=== PATIENT | male | born 1930 | race Caucasian/White ===

== ENCOUNTER 2016-10-10 10:12 | Inpatient (IN) | payer MEDICARE, OTHER ==
[2016-10-10] MEDS ORDERED: NORMAL SALINE 1000 ML 1,000 ML IV ONE (10:20)
--- NOTE | 2016-10-10 10:41 | ER Document Report ---
ED Dizziness/Weakness - General Chief Complaint: General Weakness Stated Complaint: GENERAL WEAKNESS Notes: The patient is an 86-year-old male, past medical history prostate cancer (now on weekly chemotherapy), COPD, presents with 1 year of decreasing appetite and 40 pounds of weight loss because he does not feel like eating. In addition, he is having mild shortness of breath. EMS arrived and he was 88% on room air and tachypneic. Patient is also having a wet cough. He denies chest pain, leg swelling, nausea, vomiting, abdominal pain, fevers, night sweats, headache, numbness, tingling or rash. TRAVEL OUTSIDE OF THE [place] IN LAST 30 DAYS: No - Related Data Allergies/Adverse Reactions: flu vaccine Allergy (Uncoded 04/20/16 09:08) Past Medical History - General Information source: Patient - Social History Smoking Status: Unknown if Ever Smoked Family History: None - Past Medical History Cardiac Medical History: Reports: Hx Congestive Heart Failure, Hx Heart Attack - many yrs ago, Hx Hypertension - ? since 03/2015 Denies: Hx Coronary Artery Disease Pulmonary Medical History: Reports: Hx Pneumonia Denies: Hx Asthma, Hx Bronchitis, Hx COPD Neurological Medical History: Denies: Hx Cerebrovascular Accident, Hx Seizures Renal/ Medical History: Reports: Hx Renal Insufficiency Malignancy Medical History: Reports Hx Prostate Cancer Musculoskeltal Medical History: Denies Hx Arthritis Psychiatric Medical History: Denies: Hx Depression Past Surgical History: Reports: Hx Orthopedic Surgery - R ARM, Hx Vascular Surgery - 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 - Immunizations Hx Diphtheria, Pertussis, Tetanus Vaccination: Yes Review of Systems - Review of Systems Notes: REVIEW OF SYSTEMS: CONSTITUTIONAL: -fevers, -chills, +weight loss, +decreased appetite EENT: -eye pain, -difficulty swallowing, -nasal congestion CARDIOVASCULAR:-chest pain, -syncope. RESPIRATORY: -cough, +SOB GASTROINTESTINAL: -abdominal pain, -nausea, -vomiting, -diarrhea GENITOURINARY: -dysuria, -hematuria MUSCULOSKELETAL: -back pain, -neck pain SKIN: -rash or skin lesions. HEMATOLOGIC: -easy bruising or bleeding. LYMPHATIC: -swollen, enlarged glands. NEUROLOGICAL: -altered mental status or loss of consciousness, -headache, - neurologic symptoms PSYCHIATRIC: -anxiety, -depression. ALL OTHER SYSTEMS REVIEWED AND NEGATIVE. Physical Exam - Vital signs Vitals: Temp Pulse Resp BP Pulse Ox 98.1 F 84 25 H 129/75 H 98 10/10/16 10:29 10/10/16 10:29 10/10/16 10:29 10/10/16 10:10/10/16 10:29 - Notes Notes: PHYSICAL EXAMINATION: GENERAL: In no acute distress. HEAD: Atraumatic, normocephalic. EYES: Pupils equal round and reactive to light, extraocular movements intact, sclera anicteric, conjunctiva are normal. ENT: nares patent, oropharynx clear without exudates. Moist mucous membranes. NECK: Normal range of motion, supple without lymphadenopathy LUNGS: Breath sounds clear to auscultation bilaterally and equal. No wheezes rales or rhonchi. HEART: Regular rate and rhythm without murmurs ABDOMEN: Soft, nontender, normoactive bowel sounds. No guarding, no rebound. No masses appreciated. EXTREMITIES: Normal range of motion, no pitting or edema. No cyanosis. NEUROLOGICAL: Cranial nerves grossly intact. Normal speech, normal gait. Normal sensory, motor, and reflex exams. PSYCH: Normal mood, normal affect. SKIN: Warm, Dry, normal turgor, no rashes or lesions noted. Course - Re-evaluation Re-evalutation: Patient hypoxic on arrival down to 87% on room air with tachypnea and wet cough. He does not wear oxygen. On 2 L nasal cannula, his oxygenation improves to 98%. No respiratory distress. CTA does not show evidence of PE, but does show evidence of possible pneumonia. Will begin CAP Abx and admit as inpatient for further evaluation and treatment. Creatinine below previous values. 10/10/16 13:07 Spoke to Ana Bentley and she has accepted patient to Inpatient Tele. - Vital Signs Vital signs: Temp Pulse Resp BP Pulse Ox 98.1 F 84 25 H 129/75 H 98 10/10/16 10:29 10/10/16 10:29 10/10/16 10:29 10/10/16 10:29 10/10/16 10:29 - Laboratory Result Diagrams: 10/10/16 10:40 10/10/16 10:40 Laboratory results interpreted by me: 10/10/16 10/10/16 10/10/16 10:40 10:40 10:40 RBC 3.68 L Hgb 11.3 L Hct 35.5 L MCHC 31.9 L RDW 19.4 H Seg Neutrophils % 84.3 H Lymphocytes % 10.0 L BUN 40 H Creatinine 1.49 H Est GFR ( Amer) 54 L Est GFR (Non-Af Amer) 45 L AST 112 H Alkaline Phosphatase 152 H Creatine Kinase 268 H NT-Pro-B Natriuret Pep 4510 H Total Protein 5.8 L Albumin 3.1 L Urine Protein Urine Blood Urine Urobilinogen Ur Leukocyte Esterase 10/10/16 12:09 RBC Hgb Hct MCHC RDW Seg Neutrophils % Lymphocytes % BUN Creatinine Est GFR ( Amer) Est GFR (Non-Af Amer) AST Alkaline Phosphatase Creatine Kinase NT-Pro-B Natriuret Pep Total Protein Albumin Urine Protein 100 H Urine Blood MODERATE H Urine Urobilinogen 2.0 H Ur Leukocyte Esterase SMALL H - Diagnostic Test Radiology reviewed: Image reviewed, Reports reviewed Radiology results interpreted by me: CXR: NAD CTA Lungs: 1. No PE. 2. Lower lobe airspace disease. In the appropriate clinical setting this is consistent with pneumonia. 3. The benign bone metastasis. Discharge - Discharge Clinical Impression: Hypoxia Pneumonia Qualifiers: Pneumonia type: due to unspecified organism Laterality: unspecified laterality Lung location: lower lobe of lung Qualified Code(s): J18.1 - Lobar pneumonia, unspecified organism Condition: Stable Disposition: ADMITTED INPATIENT Admitting Provider: Hospitalist - Ana Bentley Unit Admitted: Telemetry Referrals: WILBERT WETZEL MD [Primary Care Provider] - Follow up as needed
[2016-10-10 10:56] LABS: ABSOLUTE LYMPHOCYTES (AUTO) 0.7 10^3/uL (0.5-4.7); ABSOLUTE MONOCYTES (AUTO) 0.4 10^3/uL (0.1-1.4); ABSOLUTE NEUT (AUTO) 6.2 10^3/uL (1.7-8.2); BASOPHILS % (AUTO) 0.3 % (0-2); EOSINOPHILS % (AUTO) 0.1 % (0-6); HEMATOCRIT 35.5 % (37.9-51.0); HEMOGLOBIN 11.3 g/dL (13.5-17.0); HGB HCT DIFFERENCE -1.6; MEAN CORPUSCULAR HEMOGLOBIN 30.8 pg (27.0-33.4); MEAN CORPUSCULAR HGB CONC 31.9 g/dL (32.0-36.0); MEAN CORPUSCULAR VOLUME 97 fl (80-97); MONOCYTES % (AUTO) 5.3 % (3-13); RED BLOOD COUNT 3.68 10^6/uL (4.35-5.55); RED CELL DISTRIBUTION WIDTH 19.4 % (11.5-14.0); SEGMENTED NEUTROPHILS % (AUTO) 84.3 % (42-78); WHITE BLOOD COUNT 7.3 10^3/uL (4.0-10.5)
[2016-10-10 11:27] LABS: ALANINE AMINOTRANSFERASE 25 U/L (21-72); ALBUMIN 3.1 g/dL (3.5-5.0); ALKALINE PHOSPHATASE 152 U/L (38-126); ANION GAP 7 (5-19); ASPARTATE AMINO TRANSFERASE 112 U/L (17-59); BILIRUBIN,TOTAL 0.9 mg/dL (0.2-1.3); BLOOD UREA NITROGEN 40 mg/dL (7-20); CALCIUM 8.7 mg/dL (8.4-10.2); CARBON DIOXIDE 29 mmol/L (22-30); CHLORIDE 102 mmol/L (98-107); CREATINE KINASE 268 U/L (55-170); CREATININE RESULT 1.49 mg/dL (0.52-1.25); GLUCOSE 87 mg/dL (75-110); LIPASE 299.1 U/L (23-300); POTASSIUM 4.5 mmol/L (3.6-5.0); SODIUM 138.1 mmol/L (137-145); TOTAL PROTEIN 5.8 g/dL (6.3-8.2)
[2016-10-10 11:39] LABS: TROPONIN I 0.014 ng/mL
[2016-10-10 12:32] LABS: AMORPHOUS SEDIMENT,URINE TRACE /HPF; APPEARANCE,URINE TURBID; BILIRUBIN,URINE NEGATIVE (NEGATIVE); GLUCOSE, URINE NEGATIVE (NEGATIVE); KETONES,URINE NEGATIVE (NEGATIVE); LEUKOCYTE ESTERASE,URINE SMALL (NEGATIVE); NITRITE,URINE NEGATIVE (NEGATIVE); PROTEIN,URINE 100 mg/dL (NEGATIVE); TRIPLE PHOSPHATE CRYSTAL,URINE MODERATE /HPF; URINE SPECIFIC GRAVITY 1.014
[2016-10-10] MEDS ORDERED: CEFTRIAXONE INJ 1000 MG VIAL IV ONE (13:00)
[2016-10-10] MEDS ORDERED: AZITHROMYCIN INJ 500 MG VIAL IV ONE (13:00)
[2016-10-10] MEDS ORDERED: ACETAMINOPHEN 325 MG TABLET PO PRN (13:14)
[2016-10-10] MEDS ORDERED: IPRATROPIUM/ALBUTEROL 0.5-2.5 MG/3 ML AMPUL NEB PRN (13:14)
[2016-10-10] MEDS ORDERED: OXYCODONE-ACETAMINOPHEN 5-325 MG TABLET PO PRN (13:20)
[2016-10-10] MEDS ORDERED: NORMAL SALINE 1000 ML 1,000 ML IV PRN (13:24)
[2016-10-10] MEDS: IPRATROPIUM/ALBUTEROL 0.5-2.5 MG/3 ML AMPUL NEB SCH ×2 (14:06→21:13)
[2016-10-10] MEDS: METOPROLOL SUCCINATE 25 MG TAB.SR.24H PO SCH (14:07)
[2016-10-10] MEDS: HEPARIN SOD (PORCINE) 5,000 UNIT/ML 1 ML SYRINGE SUBCUT SCH ×2 (14:08→21:33)
--- NOTE | 2016-10-10 16:17 | PDOC H&P ---
History of Present Illness Admission Date/PCP: 10/10/16 13:16 WILBERT WETZEL MD Patient complains of: Lack of appetite, moist productive cough History of Present Illness: DANNY RODRIGUEZ is a 86 year old male with past medical history of 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 He states he has lost over 40 pounds in the last year because he does not feel like eating. He has increasing shortness of breath and dyspnea over the last several days. He has a moist productive cough. Denies any fever or chills. He denies any nausea, vomiting, or abdominal pain. He denies any chest pain, dizziness or or headaches. He denies any dysuria. He was found to be hypoxemic on room air with an oxygen saturation of 87%. He underwent chest x-ray and CT a chest and abdomen. His found to have a left lower lobe pneumonia. He is now saturating well on 2 L oxygen per minute. He denies again any fever or flulike symptoms. Past Medical History Cardiac Medical History: Reports: Congestive Heart Failure, Myocardial Infarction - many yrs ago, Hypertension - ? since 03/2015 Denies: Coronary Artery Disease Pulmonary Medical History: Reports: Pneumonia Denies: Asthma, Bronchitis, Chronic Obstructive Pulmonary Disease (COPD) EENT Medical History: Reports: None Neurological Medical History: Denies: Seizures Endocrine Medical History: Reports: None Malignancy Medical History: Reports: Bone Cancer, Other - prostate cancer GI Medical History: Reports: None Musculoskeltal Medical History: Denies: Arthritis Skin Medical History: Reports: None Psychiatric Medical History: Reports: None Denies: Depression Traumatic Medical History: Reports: None Hematology: Reports: Anemia Infectious Medical History: Reports: None Past Surgical History Past Surgical History: Reports: Orthopedic Surgery - R ARM, Vascular Surgery - 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 Social History Information Source: Patient Lives with: Family Smoking Status: Never Smoker Frequency of Alcohol Use: Rare Hx Recreational Drug Use: No Hx Prescription Drug Abuse: No - Advance Directive Resuscitation Status: Full Code Surrogate healthcare decision maker:: son is his healthcare surrogate decision maker Family History Family History: None Parental Family History Reviewed: Yes Children Family History Reviewed: Yes Sibling(s) Family History Reviewed.: Yes Medication/Allergy Home Medications: Hydralazine HCl [Apresoline 10 mg Tablet] 10 mg PO Q8 #90 tablet 04/03/15 Ipratropium/Albuterol Sulfate [Combivent Inhaler] 14.7 gm IH Q4H PRN #1 aer.w.adap 04/03/15 Abiraterone Acetate [Zytiga 250 mg Tablet] 1,000 mg PO DAILY 10/10/16 Bicalutamide [Casodex 50 Mg Tablet] 50 mg PO DAILY 10/10/16 Calcium Carbonate/Vitamin D3 [Calcium 500 + Vit D3 400 Tab] 2 each PO Q8 Doxazosin Mesylate [Cardura 2 mg Tablet] 2 mg PO QHS 10/10/16 Finasteride [Proscar 5 mg Tablet] 5 mg PO DAILY 10/10/16 Furosemide [Lasix] 20 mg PO MOWEFR@1000 10/10/16 Metoprolol Succinate [Toprol Xl 25 mg Tab.sr] 25 mg PO Q12 10/10/16 Prednisone [Deltasone 5 mg Tablet] 5 mg PO BID 10/10/16 Sennosides [Senna Laxative] 17.2 mg PO BID 10/10/16 Allergies/Adverse Reactions: flu vaccine Allergy (Uncoded 04/20/16 09:08) Review of Systems Constitutional: PRESENT: chills, fatigue, weakness Eyes: ABSENT: visual disturbances Ears: ABSENT: hearing changes Cardiovascular: ABSENT: chest pain, dyspnea on exertion, edema, orthropnea, palpitations Respiratory: ABSENT: cough, hemoptysis Gastrointestinal: ABSENT: abdominal pain, constipation, diarrhea, hematemesis, hematochezia, nausea, vomiting Genitourinary: ABSENT: dysuria, hematuria Musculoskeletal: ABSENT: joint swelling Integumentary: ABSENT: rash, wounds Neurological: ABSENT: abnormal gait, abnormal speech, confusion, dizziness, focal weakness, syncope Psychiatric: ABSENT: anxiety, depression, homidical ideation, suicidal ideation Endocrine: ABSENT: cold intolerance, heat intolerance, polydipsia, polyuria Hematologic/Lymphatic: ABSENT: easy bleeding, easy bruising Physical Exam Vital Signs: Temp Pulse Resp BP Pulse Ox 98.1 F 84 20 110/62 96 10/10/16 10:29 10/10/16 10:29 10/10/16 15:01 10/10/16 15:00 10/10/16 15:01 General appearance: PRESENT: no acute distress, thin, well-developed, other - cachetic Head exam: PRESENT: atraumatic, normocephalic Eye exam: PRESENT: conjunctiva pink, EOMI, PERRLA. ABSENT: scleral icterus Ear exam: PRESENT: normal external ear exam Mouth exam: PRESENT: moist, tongue midline Neck exam: PRESENT: carotid bruit Respiratory exam: PRESENT: decreased breath sounds, rhonchi. ABSENT: rales, wheezes Cardiovascular exam: PRESENT: RRR. ABSENT: diastolic murmur, rubs, systolic murmur Pulses: PRESENT: normal dorsalis pedis pul Vascular exam: PRESENT: normal capillary refill GI/Abdominal exam: PRESENT: normal bowel sounds, soft. ABSENT: distended, guarding, mass, organolmegaly, rebound, tenderness Rectal exam: PRESENT: deferred Extremities exam: PRESENT: full ROM. ABSENT: calf tenderness, clubbing, pedal edema Neurological exam: PRESENT: alert, oriented to person, oriented to place, oriented to time, CN II-XII grossly intact Psychiatric exam: PRESENT: appropriate affect, normal mood. ABSENT: homicidal ideation, suicidal ideation Skin exam: PRESENT: dry, intact, warm. ABSENT: cyanosis, rash Results Impressions: Chest X-Ray 10/10/16 10:50 IMPRESSION: NO ACUTE RADIOGRAPHIC FINDING IN THE CHEST. Chest/Abdomen CTA 10/10/16 10:50 IMPRESSION: 1. No PE. 2. Lower lobe airspace disease. In the appropriate clinical setting this is consistent with pneumonia. 3. The benign bone metastasis. Assessment & Plan - Diagnosis (1) Pneumonia Qualifiers: Pneumonia type: due to unspecified organism Laterality: left Lung location: lower lobe of lung Qualified Code(s): J18.1 - Lobar pneumonia, unspecified organism Is this a current diagnosis for this admission?: YesPlan: Her blood cultures 2 were obtained he was started on IV broad-spectrum antibiotics. (2) Hypoxia Is this a current diagnosis for this admission?: YesPlan: Oxygen by nasal cannula titrated to keep oxygen saturation greater than 90. (3) Chronic diastolic heart failure Is this a current diagnosis for this admission?: YesPlan: Patient appears slightly dehydrated the present time. (4) Acute renal failure superimposed on stage 3 chronic kidney disease Is this a current diagnosis for this admission?: YesPlan: We'll gently rehydrate with IV fluids and monitor (5) Hypothyroid Qualifiers: Hypothyroidism type: acquired Qualified Code(s): E03.9 - Hypothyroidism, unspecified Is this a current diagnosis for this admission?: YesPlan: Continue Synthroid (6) Prostate cancer Is this a current diagnosis for this admission?: YesPlan: Stage IV disease presently on oral medication only (7) Goals of care, counseling/discussion Is this a current diagnosis for this admission?: YesPlan: Patient with metastatic prostate cancer, 40 pound weight loss over the last year , COPD, chronic CHF, anemia and chronic kidney disease. He presently states he would like to be resuscitated if his heart were to stop. He is not sure if he wants to be ventilated. He will discuss this with his son. - Time Time Spent: 50 to 70 Minutes Critical Time spent with patient: 25-34 minutes Medications reviewed and adjusted accordingly: Yes Anticipated discharge: Home with Homehealth
[2016-10-10] MEDS: LANSOPRAZOLE 30 MG TAB.RAP.DR PO SCH (18:32)
[2016-10-10] MEDS: FERROUS SULFATE 325 MG TABLET PO SCH (18:36)
[2016-10-10] MEDS: GUAIFENESIN SYRP 200 MG/10 ML UDC PO PRN (18:36)
--- NOTE | 2016-10-10 19:48 | EKG REPORT ---
SEVERITY:- ABNORMAL ECG - SINUS RHYTHM FIRST DEGREE AV BLOCK LEFT BUNDLE BRANCH BLOCK INFERIOR Q WAVES, POSSIBLY DUE TO LBBB : Confirmed by: David Bell MD 10-Oct-2016 19:47:48
--- NOTE | 2016-10-10 19:48 | EKG REPORT ---
SEVERITY:- ABNORMAL ECG - SINUS RHYTHM LEFT BUNDLE BRANCH BLOCK INFERIOR Q WAVES, POSSIBLY DUE TO LBBB : Confirmed by: David Bell MD 10-Oct-2016 19:48:00
[2016-10-11] MEDS: METOPROLOL SUCCINATE 25 MG TAB.SR.24H PO SCH ×2 (00:55→13:11)
[2016-10-11] MEDS: GUAIFENESIN SYRP 200 MG/10 ML UDC PO PRN ×3 (00:55→21:12)
[2016-10-11] MEDS: LANSOPRAZOLE 30 MG TAB.RAP.DR PO SCH ×2 (05:34→17:10)
[2016-10-11] MEDS: HEPARIN SOD (PORCINE) 5,000 UNIT/ML 1 ML SYRINGE SUBCUT SCH ×3 (05:35→21:12)
[2016-10-11 06:40] LABS: ABSOLUTE BASOPHILS # (AUTO) 0.1 10^3/uL (0.0-0.2); ABSOLUTE LYMPHOCYTES (AUTO) 1.1 10^3/uL (0.5-4.7); ABSOLUTE MONOCYTES (AUTO) 0.5 10^3/uL (0.1-1.4); ABSOLUTE NEUT (AUTO) 5.8 10^3/uL (1.7-8.2); BASOPHILS % (AUTO) 0.7 % (0-2); EOSINOPHILS % (AUTO) 0.7 % (0-6); HEMATOCRIT 31.3 % (37.9-51.0); HEMOGLOBIN 10.1 g/dL (13.5-17.0); LYMPHOCYTES % (AUTO) 14.3 % (13-45); MEAN CORPUSCULAR HEMOGLOBIN 31.4 pg (27.0-33.4); MEAN CORPUSCULAR HGB CONC 32.4 g/dL (32.0-36.0); MEAN CORPUSCULAR VOLUME 97 fl (80-97); MONOCYTES % (AUTO) 6.2 % (3-13); RED BLOOD COUNT 3.23 10^6/uL (4.35-5.55); RED CELL DISTRIBUTION WIDTH 19.7 % (11.5-14.0); SEGMENTED NEUTROPHILS % (AUTO) 78.1 % (42-78); WHITE BLOOD COUNT 7.4 10^3/uL (4.0-10.5)
[2016-10-11 06:46] LABS: ANION GAP 6 (5-19); BLOOD UREA NITROGEN 33 mg/dL (7-20); CARBON DIOXIDE 25 mmol/L (22-30); CHLORIDE 107 mmol/L (98-107); CREATININE RESULT 1.26 mg/dL (0.52-1.25); GLUCOSE 70 mg/dL (75-110); POTASSIUM 3.9 mmol/L (3.6-5.0); SODIUM 137.9 mmol/L (137-145)
[2016-10-11 06:58] LABS: CALCIUM 7.2 mg/dL (8.4-10.2)
[2016-10-11] MEDS: IPRATROPIUM/ALBUTEROL 0.5-2.5 MG/3 ML AMPUL NEB SCH ×3 (08:31→19:41)
[2016-10-11] MEDS ORDERED: ENZALUTAMIDE 40 MG PO SCH (10:00)
[2016-10-11] MEDS: FERROUS SULFATE 325 MG TABLET PO SCH ×2 (10:33→17:10)
[2016-10-11] MEDS: BICALUTAMIDE 50 MG TABLET PO SCH (10:34)
[2016-10-11] MEDS: CEFTRIAXONE 1 GM/D5W RTU 50 ML IV SCH (10:35)
[2016-10-11] MEDS: LEVOTHYROXINE SODIUM 0.075 MG TABLET PO SCH (10:35)
[2016-10-11] MEDS: PREDNISONE 5 MG TABLET PO SCH (10:35)
[2016-10-11] MEDS: DOXAZOSIN MESYLATE 2 MG TABLET PO SCH (10:35)
[2016-10-11] MEDS: FINASTERIDE 5 MG TABLET PO SCH (10:35)
[2016-10-11] MEDS: AZITHROMYCIN 500 MG in DEXTROSE 5%-WATER 250 ML IV SCH (11:34)
--- NOTE | 2016-10-11 12:18 | PDOC PROGRESS REPORT ---
Subjective Progress Note for:: 10/11/16 Subjective:: Patient seen on morning rounds. He is resting quietly in bed. He continues to complain of having no appetite. This has been ongoing for over a year and he has lost over 40 lbs. It was his main complaint that brought him into the hospital. He continues to have a congested cough. He denies any dyspnea or shortness of breath. He denies any nausea, vomiting or abdominal pain. He denies any arthralgias at the present time. He has no family members present in the room. Physical Exam Vital Signs: Temp Pulse Resp BP Pulse Ox 98.1 F 76 18 129/61 H 91 L 10/11/16 07:52 10/11/16 08:31 10/11/16 08:31 10/11/16 07:52 10/11/16 08:31 Intake & Output 10/10/16 10/11/16 10/12/16 06:59 06:59 06:59 Intake Total 1250 Output Total 550 Balance 700 Weight 41 kg General appearance: PRESENT: no acute distress, thin, well-developed Head exam: PRESENT: atraumatic, normocephalic Eye exam: PRESENT: conjunctiva pink, EOMI, PERRLA. ABSENT: scleral icterus Ear exam: PRESENT: normal external ear exam Mouth exam: PRESENT: moist, tongue midline Neck exam: ABSENT: carotid bruit, JVD, lymphadenopathy, thyromegaly Respiratory exam: PRESENT: rhonchi - left base, symmetrical, unlabored Cardiovascular exam: PRESENT: RRR. ABSENT: diastolic murmur, rubs, systolic murmur Pulses: PRESENT: normal dorsalis pedis pul Vascular exam: PRESENT: normal capillary refill Rectal exam: PRESENT: deferred Extremities exam: PRESENT: full ROM. ABSENT: calf tenderness, clubbing, pedal edema Neurological exam: PRESENT: alert, awake, oriented to person, oriented to place , oriented to time, oriented to situation, CN II-XII grossly intact. ABSENT: motor sensory deficit Psychiatric exam: PRESENT: appropriate affect, normal mood. ABSENT: homicidal ideation, suicidal ideation Skin exam: PRESENT: dry, intact, warm. ABSENT: cyanosis, rash Results Laboratory Results: 10/11/16 05:30 10/11/16 05:30 10/11/16 10/11/16 05:30 05:30 WBC 7.4 RBC 3.23 L Hgb 10.1 L Hct 31.3 L MCV 97 MCH 31.4 MCHC 32.4 RDW 19.7 H Plt Count 190 Seg Neutrophils % 78.1 H Lymphocytes % 14.3 Monocytes % 6.2 Eosinophils % 0.7 Basophils % 0.7 Absolute Neutrophils 5.8 Absolute Lymphocytes 1.1 Absolute Monocytes 0.5 Absolute Eosinophils 0.0 Absolute Basophils 0.1 Sodium 137.9 Potassium 3.9 Chloride 107 Carbon Dioxide 25 Anion Gap 6 BUN 33 H Creatinine 1.26 H Est GFR ( Amer) > 60 Est GFR (Non-Af Amer) 55 L Glucose 70 L Calcium 7.2 L 10/11/16 05:30 NT-Pro-B Natriuret Pep 3680 H Impressions: Chest X-Ray 10/10/16 10:50 IMPRESSION: NO ACUTE RADIOGRAPHIC FINDING IN THE CHEST. Chest/Abdomen CTA 10/10/16 10:50 IMPRESSION: 1. No PE. 2. Lower lobe airspace disease. In the appropriate clinical setting this is consistent with pneumonia. 3. The benign bone metastasis. Assessment & Plan - Diagnosis (1) Pneumonia Qualifiers: Pneumonia type: due to unspecified organism Laterality: left Lung location: lower lobe of lung Qualified Code(s): J18.1 - Lobar pneumonia, unspecified organism Is this a current diagnosis for this admission?: YesPlan: Her blood cultures 2 were obtained he was started on IV broad-spectrum antibiotics. (2) Hypoxia Is this a current diagnosis for this admission?: YesPlan: Oxygen by nasal cannula titrated to keep oxygen saturation greater than 90. Continue nebulizer treatments and IV antibiotics (3) Chronic diastolic heart failure Is this a current diagnosis for this admission?: YesPlan: Patient appears slightly dehydrated the present time. (4) Acute renal failure superimposed on stage 3 chronic kidney disease Is this a current diagnosis for this admission?: YesPlan: We'll gently rehydrate with IV fluids and monitor (5) Hypothyroid Qualifiers: Hypothyroidism type: acquired Qualified Code(s): E03.9 - Hypothyroidism, unspecified Is this a current diagnosis for this admission?: YesPlan: Continue Synthroid (6) Prostate cancer Is this a current diagnosis for this admission?: YesPlan: Stage IV disease presently on oral medication only (7) Goals of care, counseling/discussion Is this a current diagnosis for this admission?: YesPlan: Patient with metastatic prostate cancer, 40 pound weight loss over the last year , COPD, chronic CHF, anemia and chronic kidney disease. He presently states he would like to be resuscitated if his heart were to stop. He is not sure if he wants to be ventilated. He will discuss this with his son. - Time Time Spent with patient: 25-34 minutes Critical Time spent with patient: 15-24 minutes Medications reviewed and adjusted accordingly: Yes Anticipated discharge: Home with Homehealth
[2016-10-12] MEDS: HEPARIN SOD (PORCINE) 5,000 UNIT/ML 1 ML SYRINGE SUBCUT SCH ×3 (06:01→22:58)
[2016-10-12] MEDS: LANSOPRAZOLE 30 MG TAB.RAP.DR PO SCH ×2 (06:01→17:29)
[2016-10-12] MEDS: IPRATROPIUM/ALBUTEROL 0.5-2.5 MG/3 ML AMPUL NEB SCH ×3 (08:17→19:53)
[2016-10-12] MEDS: FINASTERIDE 5 MG TABLET PO SCH (09:27)
[2016-10-12] MEDS: LEVOTHYROXINE SODIUM 0.075 MG TABLET PO SCH (09:27)
[2016-10-12] MEDS: FERROUS SULFATE 325 MG TABLET PO SCH ×2 (09:27→17:29)
[2016-10-12] MEDS: PREDNISONE 5 MG TABLET PO SCH (09:27)
[2016-10-12] MEDS: CEFTRIAXONE 1 GM/D5W RTU 50 ML IV SCH (09:27)
[2016-10-12] MEDS: METOPROLOL SUCCINATE 25 MG TAB.SR.24H PO SCH ×2 (09:27→22:48)
[2016-10-12] MEDS: DOXAZOSIN MESYLATE 2 MG TABLET PO SCH (09:27)
[2016-10-12] MEDS: BICALUTAMIDE 50 MG TABLET PO SCH (09:28)
[2016-10-12 09:55] LABS: ABSOLUTE LYMPHOCYTES (AUTO) 1.1 10^3/uL (0.5-4.7); ABSOLUTE MONOCYTES (AUTO) 0.4 10^3/uL (0.1-1.4); ABSOLUTE NEUT (AUTO) 5.8 10^3/uL (1.7-8.2); BASOPHILS % (AUTO) 0.5 % (0-2); EOSINOPHILS % (AUTO) 0.2 % (0-6); HEMATOCRIT 29.5 % (37.9-51.0); HEMOGLOBIN 9.4 g/dL (13.5-17.0); HGB HCT DIFFERENCE -1.3; MEAN CORPUSCULAR HEMOGLOBIN 30.9 pg (27.0-33.4); MEAN CORPUSCULAR HGB CONC 31.9 g/dL (32.0-36.0); MEAN CORPUSCULAR VOLUME 97 fl (80-97); MONOCYTES % (AUTO) 5.3 % (3-13); RED BLOOD COUNT 3.05 10^6/uL (4.35-5.55); RED CELL DISTRIBUTION WIDTH 19.8 % (11.5-14.0); WHITE BLOOD COUNT 7.4 10^3/uL (4.0-10.5)
[2016-10-12 10:18] LABS: ANION GAP 6 (5-19); BLOOD UREA NITROGEN 23 mg/dL (7-20); CARBON DIOXIDE 23 mmol/L (22-30); CHLORIDE 109 mmol/L (98-107); CREATININE RESULT 1.08 mg/dL (0.52-1.25); GLUCOSE 106 mg/dL (75-110); POTASSIUM 3.8 mmol/L (3.6-5.0); SODIUM 138.1 mmol/L (137-145)
[2016-10-12] MEDS: AZITHROMYCIN 500 MG in DEXTROSE 5%-WATER 250 ML IV SCH (10:23)
[2016-10-12] MEDS ORDERED: CALCIUM GLUCONATE 1000 MG/10 ML INJ IV ONE (11:30)
--- NOTE | 2016-10-12 12:09 | PDOC PROGRESS REPORT ---
Subjective Progress Note for:: 10/12/16 Subjective:: Patient seen on morning rounds. He is resting quietly in bed. He states he is feeling better than he did. He continues to complain of having no appetite. This has been ongoing for over a year and he has lost over 40 lbs. It was his main complaint that brought him into the hospital. He continues to have a congested cough. He denies any dyspnea or shortness of breath. He denies any nausea, vomiting or abdominal pain. He denies any arthralgias at the present time. He has no family members present in the room. Physical Exam Vital Signs: Temp Pulse Resp BP Pulse Ox 97.8 F 77 20 126/54 H 93 10/12/16 08:00 10/12/16 08:17 10/12/16 08:17 10/12/16 08:00 10/12/16 08:17 Intake & Output 10/11/16 10/12/16 10/13/16 06:59 06:59 06:59 Intake Total 1250 2600 Output Total 550 950 Balance 700 1650 Weight 41 kg 41 kg General appearance: PRESENT: no acute distress, thin, well-developed, other - cachetic Head exam: PRESENT: atraumatic, normocephalic Eye exam: PRESENT: conjunctiva pink, EOMI, PERRLA. ABSENT: scleral icterus Ear exam: PRESENT: normal external ear exam Mouth exam: PRESENT: moist, tongue midline Neck exam: ABSENT: carotid bruit, JVD, lymphadenopathy, thyromegaly Respiratory exam: PRESENT: rhonchi, symmetrical, unlabored, wheezes. ABSENT: rales Cardiovascular exam: PRESENT: RRR. ABSENT: diastolic murmur, rubs, systolic murmur Pulses: PRESENT: normal dorsalis pedis pul Vascular exam: PRESENT: normal capillary refill GI/Abdominal exam: PRESENT: normal bowel sounds, soft. ABSENT: distended, guarding, mass, organolmegaly, rebound, tenderness Rectal exam: PRESENT: deferred Extremities exam: PRESENT: full ROM. ABSENT: calf tenderness, clubbing, pedal edema Neurological exam: PRESENT: alert, awake, oriented to person, oriented to place , oriented to time, oriented to situation, CN II-XII grossly intact. ABSENT: motor sensory deficit Psychiatric exam: PRESENT: appropriate affect, normal mood. ABSENT: homicidal ideation, suicidal ideation Skin exam: PRESENT: dry, intact, warm. ABSENT: cyanosis, rash Results Laboratory Results: 10/12/16 09:37 10/12/16 09:37 10/12/16 10/12/16 09:37 09:37 WBC 7.4 RBC 3.05 L Hgb 9.4 L Hct 29.5 L MCV 97 MCH 30.9 MCHC 31.9 L RDW 19.8 H Plt Count 179 Seg Neutrophils % 79.0 H Lymphocytes % 15.0 Monocytes % 5.3 Eosinophils % 0.2 Basophils % 0.5 Absolute Neutrophils 5.8 Absolute Lymphocytes 1.1 Absolute Monocytes 0.4 Absolute Eosinophils 0.0 Absolute Basophils 0.0 Sodium 138.1 Potassium 3.8 Chloride 109 H Carbon Dioxide 23 Anion Gap 6 BUN 23 H Creatinine 1.08 Est GFR ( Amer) > 60 Est GFR (Non-Af Amer) > 60 Glucose 106 Calcium 7.0 L* 10/11/16 05:30 NT-Pro-B Natriuret Pep 3680 H Impressions: Chest X-Ray 10/10/16 10:50 IMPRESSION: NO ACUTE RADIOGRAPHIC FINDING IN THE CHEST. Chest/Abdomen CTA 10/10/16 10:50 IMPRESSION: 1. No PE. 2. Lower lobe airspace disease. In the appropriate clinical setting this is consistent with pneumonia. 3. The benign bone metastasis. Assessment & Plan - Diagnosis (1) Pneumonia Qualifiers: Pneumonia type: due to unspecified organism Laterality: left Lung location: lower lobe of lung Qualified Code(s): J18.1 - Lobar pneumonia, unspecified organism Is this a current diagnosis for this admission?: YesPlan: Her blood cultures 2 were obtained he was started on IV broad-spectrum antibiotics. (2) Hypoxia Is this a current diagnosis for this admission?: YesPlan: Oxygen by nasal cannula titrated to keep oxygen saturation greater than 90. Continue nebulizer treatments and IV antibiotics (3) Chronic diastolic heart failure Is this a current diagnosis for this admission?: Yes (4) Acute renal failure superimposed on stage 3 chronic kidney disease Is this a current diagnosis for this admission?: YesPlan: We'll gently rehydrate with IV fluids and monitor (5) Hypothyroid Qualifiers: Hypothyroidism type: acquired Qualified Code(s): E03.9 - Hypothyroidism, unspecified Is this a current diagnosis for this admission?: YesPlan: Continue Synthroid (6) Prostate cancer Is this a current diagnosis for this admission?: YesPlan: Stage IV disease presently on oral medication only (7) Goals of care, counseling/discussion Is this a current diagnosis for this admission?: YesPlan: Patient with metastatic prostate cancer, 40 pound weight loss over the last year , COPD, chronic CHF, anemia and chronic kidney disease. He presently states he would like to be resuscitated if his heart were to stop. He is not sure if he wants to be ventilated. He will discuss this with his son. - Time Time Spent with patient: 25-34 minutes Critical Time spent with patient: 15-24 minutes Medications reviewed and adjusted accordingly: Yes Anticipated discharge: Home with Homehealth - Inpatient Certification Based on my medical assessment, after consideration of the patient's comorbidities, presenting symptoms, or acuity I expect that the services needed warrant INPATIENT care.: Yes
[2016-10-13] MEDS: HEPARIN SOD (PORCINE) 5,000 UNIT/ML 1 ML SYRINGE SUBCUT SCH ×3 (06:10→23:11)
[2016-10-13] MEDS: LANSOPRAZOLE 30 MG TAB.RAP.DR PO SCH ×2 (06:10→16:15)
[2016-10-13] MEDS: IPRATROPIUM/ALBUTEROL 0.5-2.5 MG/3 ML AMPUL NEB SCH ×3 (08:10→20:27)
[2016-10-13] MEDS ORDERED: BENZONATATE 100 MG CAPSULE PO PRN (09:17)
[2016-10-13] MEDS ORDERED: ALBUTEROL SULFATE 0.042% NEB (1.25 MG/3 ML) AMPUL NEB PRN (09:18)
[2016-10-13 09:35] LABS: HEMATOCRIT 28.1 % (37.9-51.0); HEMOGLOBIN 9.2 g/dL (13.5-17.0); HGB HCT DIFFERENCE -0.5; MEAN CORPUSCULAR HEMOGLOBIN 31.5 pg (27.0-33.4); MEAN CORPUSCULAR HGB CONC 32.8 g/dL (32.0-36.0); MEAN CORPUSCULAR VOLUME 96 fl (80-97); RED BLOOD COUNT 2.93 10^6/uL (4.35-5.55); RED CELL DISTRIBUTION WIDTH 19.6 % (11.5-14.0); WHITE BLOOD COUNT 6.3 10^3/uL (4.0-10.5)
[2016-10-13 09:48] LABS: ALBUMIN 2.3 g/dL (3.5-5.0); ANION GAP 8 (5-19); BLOOD UREA NITROGEN 16 mg/dL (7-20); CALCIUM 7.3 mg/dL (8.4-10.2); CARBON DIOXIDE 22 mmol/L (22-30); CHLORIDE 111 mmol/L (98-107); CREATININE RESULT 1.01 mg/dL (0.52-1.25); GLUCOSE 97 mg/dL (75-110); POTASSIUM 3.7 mmol/L (3.6-5.0); SODIUM 140.6 mmol/L (137-145)
[2016-10-13 09:59] LABS: BAND NEUTROPHILS % (MANUAL) 4 % (3-5); BASOPHILS % (MANUAL) 0 % (0-2); EOSINOPHILS % (MANUAL) 1 % (0-6); LYMPHOCYTES % (MANUAL) 15 % (13-45); TOTAL CELLS COUNTED 100
[2016-10-13] MEDS ORDERED: SENNOSIDES 17.2 MG PO SCH (10:00)
[2016-10-13] MEDS ORDERED: METOPROLOL SUCCINATE 25 MG TAB.SR.24H PO SCH (10:00)
[2016-10-13 10:01] LABS: ANISOCYTOSIS 2+; OVALOCYTES 2+; POIKILOCYTOSIS 2+; POLYCHROMASIA SLIGHT; TEAR DROP CELLS SLIGHT; TOXIC GRANULATION 1+; TOXIC VACUOLATION PRESENT
[2016-10-13] MEDS: FINASTERIDE 5 MG TABLET PO SCH (12:01)
[2016-10-13] MEDS: FERROUS SULFATE 325 MG TABLET PO SCH ×2 (12:01→18:44)
[2016-10-13] MEDS: PREDNISONE 5 MG TABLET PO SCH ×2 (12:02→18:44)
[2016-10-13] MEDS: LEVOTHYROXINE SODIUM 0.075 MG TABLET PO SCH (12:02)
[2016-10-13] MEDS: GUAIFENESIN 600 MG TABLET.SA PO SCH ×2 (12:02→23:11)
[2016-10-13] MEDS: CEFTRIAXONE 1 GM/D5W RTU 50 ML IV SCH (12:03)
[2016-10-13] MEDS: AZITHROMYCIN 250 MG TABLET PO SCH (12:03)
[2016-10-13] MEDS: BICALUTAMIDE 50 MG TABLET PO SCH (12:04)
[2016-10-13] MEDS ORDERED: VITAMIN D3 PO SCH (14:00)
[2016-10-13] MEDS ORDERED: CALCIUM CARBONATE PO SCH (14:00)
[2016-10-13] MEDS ORDERED: [UNRECOGNIZED DRUG - OTHER] PO SCH (14:00)
--- NOTE | 2016-10-13 16:11 | PDOC PROGRESS REPORT ---
Subjective Progress Note for:: 10/13/16 Subjective:: The patient was seen earlier today on rounds. The patient was very areli and short in conversation. The patient denies any nausea, vomiting, diarrhea, shortness of breath, dizziness, chest pain, heart palpitations, fevers, or chills. The patient has remained afebrile. Blood pressures have been in a good range. When prompted the patient voices no other concerns at this time. Review of systems: The rest of the review of systems is negative. Physical Exam Vital Signs: Temp Pulse Resp BP Pulse Ox 98.0 F 86 18 127/65 H 100 10/13/16 12:24 10/13/16 13:57 10/13/16 13:57 10/13/16 12:24 10/13/16 12:24 Intake & Output 10/11/16 10/12/16 10/13/16 23:59 23:59 23:59 Intake Total 2450 3130 1600 Output Total 1050 1250 851 Balance 1400 1880 749 Weight 41 kg 41 kg 59.3 kg General appearance: PRESENT: no acute distress, thin, well-developed Exam: Frail, chronically ill-appearing Head exam: PRESENT: atraumatic, normocephalic Eye exam: PRESENT: conjunctiva pink, EOMI, PERRLA. ABSENT: scleral icterus Ear exam: PRESENT: normal external ear exam Mouth exam: PRESENT: moist, tongue midline Neck exam: ABSENT: carotid bruit, JVD, lymphadenopathy, thyromegaly Respiratory exam: PRESENT: decreased breath sounds, rhonchi, symmetrical, unlabored. ABSENT: rales, tachypnea, wheezes Cardiovascular exam: PRESENT: RRR. ABSENT: diastolic murmur, rubs, systolic murmur Pulses: PRESENT: normal dorsalis pedis pul Vascular exam: PRESENT: normal capillary refill GI/Abdominal exam: PRESENT: normal bowel sounds, soft. ABSENT: distended, guarding, mass, organolmegaly, rebound, tenderness Rectal exam: PRESENT: deferred Extremities exam: PRESENT: full ROM. ABSENT: calf tenderness, clubbing, pedal edema Neurological exam: PRESENT: alert, awake, oriented to person, oriented to place , oriented to time, oriented to situation, CN II-XII grossly intact. ABSENT: motor sensory deficit Psychiatric exam: PRESENT: agitated. ABSENT: homicidal ideation, suicidal ideation Skin exam: PRESENT: dry, intact, mottled, pallor, warm. ABSENT: cyanosis, rash Results Laboratory Results: 10/13/16 09:14 10/13/16 09:14 10/13/16 10/13/16 09:14 09:14 WBC 6.3 RBC 2.93 L Hgb 9.2 L Hct 28.1 L MCV 96 MCH 31.5 MCHC 32.8 RDW 19.6 H Plt Count 164 Seg Neutrophils % Not Reportable Lymphocytes % Not Reportable Monocytes % Not Reportable Eosinophils % Not Reportable Basophils % Not Reportable Absolute Neutrophils Not Reportable Absolute Lymphocytes Not Reportable Absolute Monocytes Not Reportable Absolute Eosinophils Not Reportable Absolute Basophils Not Reportable Sodium 140.6 Potassium 3.7 Chloride 111 H Carbon Dioxide 22 Anion Gap 8 BUN 16 Creatinine 1.01 Est GFR ( Amer) > 60 Est GFR (Non-Af Amer) > 60 Glucose 97 Calcium 7.3 L Albumin 2.3 L 10/11/16 05:30 NT-Pro-B Natriuret Pep 3680 H Impressions: Chest X-Ray 10/10/16 10:50 IMPRESSION: NO ACUTE RADIOGRAPHIC FINDING IN THE CHEST. Chest/Abdomen CTA 10/10/16 10:50 IMPRESSION: 1. No PE. 2. Lower lobe airspace disease. In the appropriate clinical setting this is consistent with pneumonia. 3. The benign bone metastasis. Assessment & Plan - Diagnosis (1) Pneumonia Qualifiers: Pneumonia type: due to unspecified organism Laterality: left Lung location: lower lobe of lung Qualified Code(s): J18.1 - Lobar pneumonia, unspecified organism Is this a current diagnosis for this admission?: YesPlan: Will continue antibiotic coverage. (2) Acute hypoxemic respiratory failure Is this a current diagnosis for this admission?: YesPlan: Oxygen by nasal cannula titrated to keep oxygen saturation greater than 90. Continue nebulizer treatments and IV antibiotics (3) Chronic diastolic heart failure Is this a current diagnosis for this admission?: YesPlan: The patient appears optivolemic (4) Acute CHF Qualifiers: Congestive heart failure type: diastolic Qualified Code(s): I50.31 - Acute diastolic (congestive) heart failure (5) Acute renal failure superimposed on stage 3 chronic kidney disease Is this a current diagnosis for this admission?: YesPlan: Improved with hydration (7) Hypocalcemia Is this a current diagnosis for this admission?: YesPlan: Will add and albumin. This is been repleted earlier. (8) Hypothyroid Qualifiers: Hypothyroidism type: acquired Qualified Code(s): E03.9 - Hypothyroidism, unspecified Is this a current diagnosis for this admission?: Yes (10) Prostate cancer Is this a current diagnosis for this admission?: YesPlan: Stage IV disease presently on oral medication only (11) Urinary retention Is this a current diagnosis for this admission?: Yes - Time Time Spent with patient: 25-34 minutes Medications reviewed and adjusted accordingly: Yes Anticipated discharge: Home with Homehealth Within: within 24 hours, within 48 hours
[2016-10-13] MEDS: CALCIUM CARBONATE 250 MG/VITAMIN D3 125 UNIT TABLET PO SCH ×2 (16:14→23:11)
[2016-10-13] MEDS: SENNOSIDES/DOCUSATE 8.6-50 MG 1 EACH TABLET PO SCH (18:44)
[2016-10-13] MEDS ORDERED: DOXAZOSIN MESYLATE 2 MG TABLET PO SCH (22:00)
[2016-10-13] MEDS: MONTELUKAST SODIUM 10 MG TABLET PO SCH (23:11)
[2016-10-14] MEDS: CALCIUM CARBONATE 250 MG/VITAMIN D3 125 UNIT TABLET PO SCH ×2 (05:58→13:17)
[2016-10-14] MEDS: LANSOPRAZOLE 30 MG TAB.RAP.DR PO SCH ×2 (05:58→18:04)
[2016-10-14] MEDS: HEPARIN SOD (PORCINE) 5,000 UNIT/ML 1 ML SYRINGE SUBCUT SCH ×2 (05:58→13:17)
[2016-10-14] MEDS: IPRATROPIUM/ALBUTEROL 0.5-2.5 MG/3 ML AMPUL NEB SCH ×3 (08:01→20:01)
[2016-10-14] MEDS: METOPROLOL SUCCINATE 25 MG TAB.SR.24H PO SCH (09:04)
[2016-10-14] MEDS: LEVOTHYROXINE SODIUM 0.075 MG TABLET PO SCH (09:05)
[2016-10-14] MEDS: FINASTERIDE 5 MG TABLET PO SCH (09:05)
[2016-10-14] MEDS: CEFTRIAXONE 1 GM/D5W RTU 50 ML IV SCH (09:05)
[2016-10-14] MEDS: SENNOSIDES/DOCUSATE 8.6-50 MG 1 EACH TABLET PO SCH ×2 (09:05→18:05)
[2016-10-14] MEDS: AZITHROMYCIN 250 MG TABLET PO SCH (09:05)
[2016-10-14] MEDS: FERROUS SULFATE 325 MG TABLET PO SCH ×2 (09:05→18:04)
[2016-10-14] MEDS: GUAIFENESIN 600 MG TABLET.SA PO SCH (09:05)
[2016-10-14] MEDS: PREDNISONE 5 MG TABLET PO SCH ×2 (09:05→18:04)
[2016-10-14] MEDS: BICALUTAMIDE 50 MG TABLET PO SCH (09:06)
--- NOTE | 2016-10-14 16:31 | PDOC PROGRESS REPORT ---
Subjective Progress Note for:: 10/14/16 Subjective:: The patient was seen earlier today on rounds. The patient states that he does about the same in comparison to yesterday. Remains dyspneic even while at rest but is able to fully complete sentences today in comparison to yesterday. Patient denies any pain. Patient has been unable to produce any sputum. The patient denies any nausea, vomiting, diarrhea, dizziness, chest pain, heart palpitations, fevers, or chills. The patient has remained afebrile. Blood pressures have been in a good range. When prompted the patient voices no other concerns at this time. Review of systems: The rest of the review of systems is negative. Physical Exam Vital Signs: Temp Pulse Resp BP Pulse Ox 97.7 F 92 20 121/59 L 93 10/14/16 11:32 10/14/16 14:00 10/14/16 13:42 10/14/16 11:32 10/14/16 13:42 Intake & Output 10/12/16 10/13/16 10/14/16 23:59 23:59 23:59 Intake Total 3130 2575 527 Output Total 1250 1251 950 Balance 1880 1324 -423 Weight 41 kg 59.3 kg 58.9 kg General appearance: PRESENT: no acute distress, thin, well-developed Exam: Frail, chronically ill-appearing Head exam: PRESENT: atraumatic, normocephalic Eye exam: PRESENT: conjunctiva pink, EOMI, PERRLA. ABSENT: scleral icterus Ear exam: PRESENT: normal external ear exam Mouth exam: PRESENT: moist, tongue midline Neck exam: ABSENT: carotid bruit, JVD, lymphadenopathy, thyromegaly Respiratory exam: PRESENT: decreased breath sounds, rhonchi, symmetrical, unlabored. ABSENT: rales, tachypnea, wheezes Cardiovascular exam: PRESENT: RRR. ABSENT: diastolic murmur, rubs, systolic murmur Pulses: PRESENT: normal dorsalis pedis pul Vascular exam: PRESENT: normal capillary refill GI/Abdominal exam: PRESENT: normal bowel sounds, soft. ABSENT: distended, guarding, mass, organolmegaly, rebound, tenderness Rectal exam: PRESENT: deferred Extremities exam: PRESENT: full ROM. ABSENT: calf tenderness, clubbing, pedal edema Neurological exam: PRESENT: alert, awake, oriented to person, oriented to place , oriented to time, oriented to situation, CN II-XII grossly intact. ABSENT: motor sensory deficit Psychiatric exam: PRESENT: agitated. ABSENT: homicidal ideation, suicidal ideation Skin exam: PRESENT: dry, intact, mottled, pallor, warm. ABSENT: cyanosis, rash Results Laboratory Results: 10/13/16 09:14 10/13/16 09:14 10/11/16 05:30 NT-Pro-B Natriuret Pep 3680 H Impressions: Chest X-Ray 10/10/16 10:50 IMPRESSION: NO ACUTE RADIOGRAPHIC FINDING IN THE CHEST. Chest/Abdomen CTA 10/10/16 10:50 IMPRESSION: 1. No PE. 2. Lower lobe airspace disease. In the appropriate clinical setting this is consistent with pneumonia. 3. The benign bone metastasis. Assessment & Plan - Diagnosis (1) Pneumonia Qualifiers: Pneumonia type: due to unspecified organism Laterality: left Lung location: lower lobe of lung Qualified Code(s): J18.1 - Lobar pneumonia, unspecified organism Is this a current diagnosis for this admission?: YesPlan: Will continue antibiotic coverage. (2) Acute hypoxemic respiratory failure Is this a current diagnosis for this admission?: YesPlan: Oxygen by nasal cannula titrated to keep oxygen saturation greater than 90. Continue nebulizer treatments and IV antibiotics (3) Chronic diastolic heart failure Is this a current diagnosis for this admission?: YesPlan: The patient appears optivolemic (4) Acute renal failure superimposed on stage 3 chronic kidney disease Is this a current diagnosis for this admission?: YesPlan: Improved with hydration (5) Coronary artery disease Is this a current diagnosis for this admission?: Yes (6) Hypothyroid Qualifiers: Hypothyroidism type: acquired Qualified Code(s): E03.9 - Hypothyroidism, unspecified Is this a current diagnosis for this admission?: Yes (7) Left bundle branch block Is this a current diagnosis for this admission?: Yes (8) Prostate cancer Is this a current diagnosis for this admission?: YesPlan: Stage IV disease presently on oral medication only. Consult palliative care to help with goals. - Time Time Spent with patient: 25-34 minutes Medications reviewed and adjusted accordingly: Yes Anticipated discharge: SNF, Acute Rehab Within: when bed available
--- NOTE | 2016-10-14 23:27 | Palliative Consultation Report ---
Consultation From:: SHYANNE ALMAGUER Consult Reason: Palliative care - HPI HPI: Visit made 3:00- 3:25 pm 10/14/16 Appreciate palliaitve care consult with this frail 86 year old gentleman who was pleasant and well oriented, but very weak. Mr. Serna was admitted with respiratory distress from home and is being treated for pnemonia and CHF. He has a long history of prostate cancer and has been receiving treatmetn for it, however, records state it is metastatic. He is now only taking oral agents to treat the cancer. He states he has felt himself "lose ground" for the past several months and records indicate he has lost 40# this year which he confirms. Mr. Serna lives in his home with his son who is disabled. He states he has to be able to return home to pay bills and take care of the house. However, he realizes that he has only been OOB once to go to and he was very weak then. He has conversational dyspnea and he realizes he is very weak. He denies having any pain or nausea. Mr. Serna was very pleasant and interested in palliative care for "any help he can get". We discussed his weakened condition and discussed that he may need to go to a rehab facility to regain his strength. He says he doesnt want to do that but his expresion seemed that he is aware of his weakness. We did discuss his advance directives. He says if his heart stops he would like to have attempt to restart it because he has so much to do. I explained that if he becomes so ill that his heart stops it is likely that it will not be able to be "restarted" and if it is, the likelihood of returning to his current baseline would be very doubtful. He agreed but said he wants it left full code for now. I did not get the sense that he will be opposed to disussion about this again later. I did not suggest doing a MOST form at this time due to his weakness and realization of his condition being so upsetting to him. Onset: Last week Onset/Duration: Gradual Quality of Pain: No pain Associated Symptoms: Productive cough, Shortness of breath, Weakness Relieved by: Remaining still Past Medical History(Consults) - General Information Source: Patient, [facility] Records Home Medications: Hydralazine HCl [Apresoline 10 mg Tablet] 10 mg PO Q8 #90 tablet 04/03/15 Ipratropium/Albuterol Sulfate [Combivent Inhaler] 14.7 gm IH Q4H PRN #1 aer.w.[email or web address] 04/03/15 Abiraterone Acetate [Zytiga 250 mg Tablet] 1,000 mg PO DAILY 10/10/16 Bicalutamide [Casodex 50 Mg Tablet] 50 mg PO DAILY 10/10/16 Calcium Carbonate/Vitamin D3 [Calcium 500 + Vit D3 400 Tab] 2 each PO Q8 Doxazosin Mesylate [Cardura 2 mg Tablet] 2 mg PO QHS 10/10/16 Finasteride [Proscar 5 mg Tablet] 5 mg PO DAILY 10/10/16 Furosemide [Lasix] 20 mg PO MOWEFR@1000 10/10/16 Metoprolol Succinate [Toprol Xl 25 mg Tab.sr] 25 mg PO Q12 10/10/16 Prednisone [Deltasone 5 mg Tablet] 5 mg PO BID 10/10/16 Sennosides [Senna Laxative] 17.2 mg PO BID 10/10/16 Allergies/Adverse Reactions: flu vaccine Allergy (Uncoded 04/20/16 09:08) - Social History Lives with: Family Family History: None Parental Family History Reviewed: No Children Family History Reviewed: No Sibling(s) Family History Reviewed.: No Smoking Status: Never Smoker Frequency of Alcohol Use: Rare Hx Recreational Drug Use: No Hx Prescription Drug Abuse: No - Past Medical History Cardiac Medical History: Reports: Hx Congestive Heart Failure, Hx Heart Attack - many yrs ago, Hx Hypertension - ? since 03/2015 Denies: Hx Coronary Artery Disease Pulmonary Medical History: Reports: Hx Pneumonia Denies: Hx Asthma, Hx Bronchitis, Hx COPD EENT Medical History: Reports: None Neurological Medical History: Denies: Hx Cerebrovascular Accident, Hx Seizures Endocrine Medical History: Reports: None Renal/ Medical History: Reports: Hx Renal Insufficiency Malignancy Medical History: Reports Hx Bone Cancer, Reports Hx Prostate Cancer, Reports Other - prostate cancer GI Medical History: Reports: None Musculoskeltal Medical History: Denies Hx Arthritis Skin Medical History: Reports None Psychiatric Medical History: Reports: None Denies: Hx Depression Traumatic Medical History: Reports: None Infectious Medical History: Reports: None Hematology: Reports: Anemia - Surgical History Past Surgical History: Reports: Hx Orthopedic Surgery - R ARM, Hx Vascular Surgery - 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 Review of systems All systems: reviewed and no additional remarkable complaints except as stated Constitutional: Weakness, Weight loss, Recent illness Cardiovascular: Dyspnea Respiratory: Cough, Short of breath Hematologic/Lymphatic: Anemia Neurological/Psychological: Anxiety Ojective:Exam Vital Signs: Temp Pulse Resp BP Pulse Ox 98.0 F 86 18 135/72 H 99 10/14/16 16:03 10/14/16 20:00 10/14/16 20:00 10/14/16 16:03 10/14/16 17:21 Intake & Output 10/13/16 10/14/16 10/15/16 06:59 06:59 06:59 Intake Total 3130 1375 327 Output Total 1200 1201 600 Balance 1930 174 -273 Weight 59.3 kg 58.9 kg - General General Appearance: Alert, Anxious Note:: Awake, alert, riented and pleasant. COncerned with his weakness and condition, many stressors and worries. Denies pain or nausea. Noted dyspnea - Respiratory Respiratory Status: Labored Chest Status: Pain with cough Breath sounds: Rhonchi - Cardiovascular Rhythm: Regular Pulses: Normal: Radial - Extremities Lower extremities: Other - weakness difficulty standing - Neurological Cognition: Normal Orientation: Alert, Oriented to person, Oriented to place, Oriented to time Speech: Normal Cranial nerves: Nerves 1-12 grossly intact - Psychological Associated symptoms: Anxious Objective-Diagnostic Laboratory: 10/13/16 09:14 10/13/16 09:14 10/11/16 05:30 NT-Pro-B Natriuret Pep 3680 H Plan and Recommendation Plan and Recommendation: Discussed advance directives with patient and he said he would think about code status, more concerned with responsibilities at home. Aware of his weakness and anxious about condition. Brandon wants to take meds for prostate cancer. We discussed rehab after hospitalization as he seems to be aware he cannot manage on his own with current weakness. He states the CHF is new and he is not used to dealing with it yet. Aware that this is very serious. Patient asked me to return tomorrow to "check on him". He appears very anxious and frightened. He agreed for PC visits in [facility] and at home. Will discuss at time of discharge. Will follow, appreciate opportunity to participate in his care. - Time Spent with Patient Time spent with patient: 15 to 30 Minutes - Total time 25 min with patient, 40 min chart review, documentation
[2016-10-15] MEDS: HEPARIN SOD (PORCINE) 5,000 UNIT/ML 1 ML SYRINGE SUBCUT SCH ×4 (00:21→21:19)
[2016-10-15] MEDS: CALCIUM CARBONATE 250 MG/VITAMIN D3 125 UNIT TABLET PO SCH ×4 (00:21→21:19)
[2016-10-15] MEDS: GUAIFENESIN 600 MG TABLET.SA PO SCH ×3 (00:21→21:19)
[2016-10-15] MEDS: METOPROLOL SUCCINATE 25 MG TAB.SR.24H PO SCH ×3 (00:22→21:19)
[2016-10-15] MEDS: MONTELUKAST SODIUM 10 MG TABLET PO SCH ×2 (00:22→21:19)
[2016-10-15] MEDS: DOXAZOSIN MESYLATE 2 MG TABLET PO SCH ×2 (00:23→21:19)
[2016-10-15] MEDS: LANSOPRAZOLE 30 MG TAB.RAP.DR PO SCH ×2 (06:58→18:35)
[2016-10-15] MEDS: IPRATROPIUM/ALBUTEROL 0.5-2.5 MG/3 ML AMPUL NEB SCH ×3 (07:50→20:10)
[2016-10-15] MEDS: LEVOTHYROXINE SODIUM 0.075 MG TABLET PO SCH (10:10)
[2016-10-15] MEDS: PREDNISONE 5 MG TABLET PO SCH ×2 (10:11→18:35)
[2016-10-15] MEDS: FINASTERIDE 5 MG TABLET PO SCH (10:11)
[2016-10-15] MEDS: FERROUS SULFATE 325 MG TABLET PO SCH ×2 (10:11→18:35)
[2016-10-15] MEDS: AZITHROMYCIN 250 MG TABLET PO SCH (10:11)
[2016-10-15] MEDS: BICALUTAMIDE 50 MG TABLET PO SCH (10:20)
[2016-10-15] MEDS: CEFUROXIME 500 MG TABLET PO SCH ×2 (10:21→18:35)
[2016-10-15] MEDS: SENNOSIDES/DOCUSATE 8.6-50 MG 1 EACH TABLET PO SCH ×2 (10:28→19:04)
--- NOTE | 2016-10-15 12:44 | PDOC PROGRESS REPORT ---
Subjective Progress Note for:: 10/15/16 Subjective:: The patient was seen earlier today on rounds. The patient states that he does about the same in comparison to yesterday. The patient is short and [place] yet again today. Patient has been seen by social work and has agreed to go to rehabilitation. Remains dyspneic even while at rest but is able to fully complete sentences today in comparison to yesterday. Patient denies any pain. Patient has been unable to produce any sputum. The patient denies any nausea, vomiting, diarrhea, dizziness, chest pain, heart palpitations, fevers, or chills. The patient has remained afebrile. Blood pressures have been in a good range. When prompted the patient voices no other concerns at this time. Will discuss the case with the patient's oncologist as rehabilitation 1 chemotherapy to be put on hold. Review of systems: The rest of the review of systems is negative. Physical Exam Vital Signs: Temp Pulse Resp BP Pulse Ox 98.1 F 80 18 137/67 H 97 10/15/16 07:34 10/15/16 07:49 10/15/16 07:49 10/15/16 07:34 10/15/16 07:49 Intake & Output 10/13/16 10/14/16 10/15/16 23:59 23:59 23:59 Intake Total 2575 527 400 Output Total 1251 950 0 Balance 1324 -423 400 Weight 59.3 kg 58.9 kg 58.9 kg General appearance: PRESENT: no acute distress, thin, well-developed Exam: Frail, chronically ill-appearing Head exam: PRESENT: atraumatic, normocephalic Eye exam: PRESENT: conjunctiva pink, EOMI, PERRLA. ABSENT: scleral icterus Ear exam: PRESENT: normal external ear exam Mouth exam: PRESENT: moist, tongue midline Neck exam: ABSENT: carotid bruit, JVD, lymphadenopathy, thyromegaly Respiratory exam: PRESENT: decreased breath sounds, rhonchi, symmetrical, unlabored. ABSENT: rales, tachypnea, wheezes Cardiovascular exam: PRESENT: RRR. ABSENT: diastolic murmur, rubs, systolic murmur Pulses: PRESENT: normal dorsalis pedis pul Vascular exam: PRESENT: normal capillary refill GI/Abdominal exam: PRESENT: normal bowel sounds, soft. ABSENT: distended, guarding, mass, organolmegaly, rebound, tenderness Rectal exam: PRESENT: deferred Extremities exam: PRESENT: full ROM. ABSENT: calf tenderness, clubbing, pedal edema Neurological exam: PRESENT: alert, awake, oriented to person, oriented to place , oriented to time, oriented to situation, CN II-XII grossly intact. ABSENT: motor sensory deficit Psychiatric exam: PRESENT: agitated. ABSENT: homicidal ideation, suicidal ideation Skin exam: PRESENT: dry, intact, mottled, pallor, warm. ABSENT: cyanosis, rash Results Laboratory Results: 10/13/16 09:14 10/13/16 09:14 10/11/16 05:30 NT-Pro-B Natriuret Pep 3680 H Impressions: Chest X-Ray 10/10/16 10:50 IMPRESSION: NO ACUTE RADIOGRAPHIC FINDING IN THE CHEST. Chest/Abdomen CTA 10/10/16 10:50 IMPRESSION: 1. No PE. 2. Lower lobe airspace disease. In the appropriate clinical setting this is consistent with pneumonia. 3. The benign bone metastasis. Assessment & Plan - Diagnosis (1) Pneumonia Qualifiers: Pneumonia type: due to unspecified organism Laterality: left Lung location: lower lobe of lung Qualified Code(s): J18.1 - Lobar pneumonia, unspecified organism Is this a current diagnosis for this admission?: YesPlan: Will transition to by mouth antibiotic coverage. Will continue Mucinex and encourage flutter valve. (2) Acute hypoxemic respiratory failure Is this a current diagnosis for this admission?: YesPlan: Oxygen by nasal cannula titrated to keep oxygen saturation greater than 90. Continue nebulizer treatments and IV antibiotics (3) Chronic diastolic heart failure Is this a current diagnosis for this admission?: YesPlan: The patient appears optivolemic (4) Acute renal failure superimposed on stage 3 chronic kidney disease Is this a current diagnosis for this admission?: YesPlan: Improved with hydration (5) Coronary artery disease Is this a current diagnosis for this admission?: Yes (6) Hypothyroid Qualifiers: Hypothyroidism type: acquired Qualified Code(s): E03.9 - Hypothyroidism, unspecified Is this a current diagnosis for this admission?: Yes (7) Left bundle branch block Is this a current diagnosis for this admission?: Yes (8) Prostate cancer Is this a current diagnosis for this admission?: YesPlan: Stage IV disease presently on oral medication only. Consult palliative care to help with goals. (9) Urinary retention Is this a current diagnosis for this admission?: Yes - Time Time Spent with patient: 25-34 minutes Medications reviewed and adjusted accordingly: Yes Anticipated discharge: SNF Within: when bed available
[2016-10-16] MEDS: CALCIUM CARBONATE 250 MG/VITAMIN D3 125 UNIT TABLET PO SCH ×3 (05:43→21:24)
[2016-10-16] MEDS: LANSOPRAZOLE 30 MG TAB.RAP.DR PO SCH ×2 (05:43→17:20)
[2016-10-16] MEDS: HEPARIN SOD (PORCINE) 5,000 UNIT/ML 1 ML SYRINGE SUBCUT SCH ×3 (05:43→21:24)
[2016-10-16] MEDS: IPRATROPIUM/ALBUTEROL 0.5-2.5 MG/3 ML AMPUL NEB SCH ×3 (08:04→19:21)
[2016-10-16] MEDS: PREDNISONE 5 MG TABLET PO SCH ×2 (09:50→17:20)
[2016-10-16] MEDS: FERROUS SULFATE 325 MG TABLET PO SCH ×2 (09:50→17:20)
[2016-10-16] MEDS: FINASTERIDE 5 MG TABLET PO SCH (09:50)
[2016-10-16] MEDS: CEFUROXIME 500 MG TABLET PO SCH ×2 (09:50→17:20)
[2016-10-16] MEDS: METOPROLOL SUCCINATE 25 MG TAB.SR.24H PO SCH ×2 (09:51→21:24)
[2016-10-16] MEDS: AZITHROMYCIN 250 MG TABLET PO SCH (09:51)
[2016-10-16] MEDS: LEVOTHYROXINE SODIUM 0.075 MG TABLET PO SCH (09:51)
[2016-10-16] MEDS: GUAIFENESIN 600 MG TABLET.SA PO SCH ×2 (09:51→21:24)
[2016-10-16] MEDS: BICALUTAMIDE 50 MG TABLET PO SCH (09:51)
[2016-10-16] MEDS: SENNOSIDES/DOCUSATE 8.6-50 MG 1 EACH TABLET PO SCH ×2 (09:53→17:19)
--- NOTE | 2016-10-16 13:22 | PDOC PROGRESS REPORT ---
Subjective Progress Note for:: 10/16/16 Subjective:: The patient was seen earlier today on rounds. The patient states that he does about the same in comparison to yesterday. The patient is awaiting placement. Discussed the case with the patient's oncologist. Remains dyspneic even while at rest but is able to fully complete sentences today in comparison to yesterday. Patient denies any pain. Patient has been unable to produce any sputum. The patient denies any nausea, vomiting, diarrhea, dizziness, chest pain, heart palpitations, fevers, or chills. The patient has remained afebrile. Blood pressures have been in a good range. When prompted the patient voices no other concerns at this time. Review of systems: The rest of the review of systems is negative. Physical Exam Vital Signs: Temp Pulse Resp BP Pulse Ox 98.1 F 88 18 131/63 H 96 10/16/16 04:05 10/16/16 08:04 10/16/16 08:04 10/16/16 04:05 10/16/16 08:04 Intake & Output 10/14/16 10/15/16 10/16/16 23:59 23:59 23:59 Intake Total 527 870 620 Output Total 950 800 500 Balance -423 70 120 Weight 58.9 kg 58.9 kg 59.2 kg General appearance: PRESENT: no acute distress, thin, well-developed Exam: Frail, chronically ill-appearing Head exam: PRESENT: atraumatic, normocephalic Eye exam: PRESENT: conjunctiva pink, EOMI, PERRLA. ABSENT: scleral icterus Ear exam: PRESENT: normal external ear exam Mouth exam: PRESENT: moist, tongue midline Neck exam: ABSENT: carotid bruit, JVD, lymphadenopathy, thyromegaly Respiratory exam: PRESENT: decreased breath sounds, rhonchi, symmetrical, unlabored. ABSENT: rales, tachypnea, wheezes Cardiovascular exam: PRESENT: RRR. ABSENT: diastolic murmur, rubs, systolic murmur Pulses: PRESENT: normal dorsalis pedis pul Vascular exam: PRESENT: normal capillary refill GI/Abdominal exam: PRESENT: normal bowel sounds, soft. ABSENT: distended, guarding, mass, organolmegaly, rebound, tenderness Rectal exam: PRESENT: deferred Extremities exam: PRESENT: full ROM. ABSENT: calf tenderness, clubbing, pedal edema Neurological exam: PRESENT: alert, awake, oriented to person, oriented to place , oriented to time, oriented to situation, CN II-XII grossly intact. ABSENT: motor sensory deficit Psychiatric exam: PRESENT: agitated. ABSENT: homicidal ideation, suicidal ideation Skin exam: PRESENT: dry, intact, mottled, pallor, warm. ABSENT: cyanosis, rash Results Laboratory Results: 10/13/16 09:14 10/13/16 09:14 10/10/16 13:25 Blood Blood Culture - Final NO GROWTH IN 5 DAYS 10/11/16 05:30 NT-Pro-B Natriuret Pep 3680 H Impressions: Chest X-Ray 10/10/16 10:50 IMPRESSION: NO ACUTE RADIOGRAPHIC FINDING IN THE CHEST. Chest/Abdomen CTA 10/10/16 10:50 IMPRESSION: 1. No PE. 2. Lower lobe airspace disease. In the appropriate clinical setting this is consistent with pneumonia. 3. The benign bone metastasis. Assessment & Plan - Diagnosis (1) Pneumonia Qualifiers: Pneumonia type: due to unspecified organism Laterality: left Lung location: lower lobe of lung Qualified Code(s): J18.1 - Lobar pneumonia, unspecified organism Is this a current diagnosis for this admission?: YesPlan: have transitioned to by mouth antibiotic coverage. Will continue Mucinex and encourage flutter valve. (2) Acute hypoxemic respiratory failure Is this a current diagnosis for this admission?: YesPlan: Oxygen by nasal cannula titrated to keep oxygen saturation greater than 90. Continue nebulizer treatments and IV antibiotics (3) Chronic diastolic heart failure Is this a current diagnosis for this admission?: YesPlan: The patient appears optivolemic (4) Acute renal failure superimposed on stage 3 chronic kidney disease Is this a current diagnosis for this admission?: YesPlan: Improved with hydration (5) Coronary artery disease Is this a current diagnosis for this admission?: Yes (6) Hypothyroid Qualifiers: Hypothyroidism type: acquired Qualified Code(s): E03.9 - Hypothyroidism, unspecified Is this a current diagnosis for this admission?: Yes (7) Left bundle branch block Is this a current diagnosis for this admission?: Yes (8) Prostate cancer Is this a current diagnosis for this admission?: YesPlan: Stage IV disease presently on oral medication only. Consult palliative care to help with goals. (9) Urinary retention Is this a current diagnosis for this admission?: Yes - Time Time Spent with patient: 25-34 minutes Medications reviewed and adjusted accordingly: Yes Anticipated discharge: SNF Within: when bed available
[2016-10-16] MEDS: DOXAZOSIN MESYLATE 2 MG TABLET PO SCH (21:24)
[2016-10-16] MEDS: MONTELUKAST SODIUM 10 MG TABLET PO SCH (21:24)
--- NOTE | 2016-10-16 23:18 | Progress Note ---
Provider Note Provider Note: Palliative Care follow up visit 10/16/16 3:45- 4::05 pm with patient and his son. S: Mr. Serna is looking much better today and says he is feeling better. He reports that he walked in the hallway some today with PT with weakness but not extreme dyspnea. He still denies pain and says he thinks he is breathing better. Main complaint is little or no appetite, which has been going on for several months with weight loss. We discussed recommendations for meds to help improve his appetite and he is interested. He said he just doent think he can eat and the thought/sight of food repels him. Denies constipation or nausea. Son is at bedside and patient made it obvious that he was only going to go to rehab for a short time and plans to go home with son as soon as possible. Son is disabled, but appears to be able to help his father some and certainly able to help with meals, etc. Son is alert and oriented. Mr. Serna is OK with going to rehab and stopping chemo for now. But he has not given up treatment for all of his disease, including cancer. He is sure he will be sronger soon per his words, but his expression showed some anxiety. O: Alert, oriented and in no distress except some noted anxiety. Less pale than two days ago. Breathing easily while in ed with oxygen on. Some congested cough and rhonchi Abd soft and thin. No edema of extremities. Pulse regular. A/P: Resolving pneumonia and respiratory distress, to continue meds and PT while in hospital Weakness: patient agreeable to go to [facility] for rehab since it is close to his home. I explained to him that I cannot follow him at [facility], but will see him in hospital Wednesday. And I will be happy to follow him when he goes home. I gave son my card to call me when he goes home. If he gets home will discuss the chemo then in relation to the condition he is in. Appetite problems: Would recomend Remeron ( Mirtazipine) 7.5 mg q hs if low dose prednisone is not continued for breathing. Both could be used together and if no side effects, remeron could be increased to 15 mg q hs. Will follow with patient if he is still at [facility] on Wednesday. Appreciate opportunity to participate with care. Will address advance directives again with patient.
[2016-10-17] MEDS: CALCIUM CARBONATE 250 MG/VITAMIN D3 125 UNIT TABLET PO SCH ×3 (06:19→21:25)
[2016-10-17] MEDS: LANSOPRAZOLE 30 MG TAB.RAP.DR PO SCH ×2 (06:19→16:31)
[2016-10-17] MEDS: HEPARIN SOD (PORCINE) 5,000 UNIT/ML 1 ML SYRINGE SUBCUT SCH ×3 (06:20→21:26)
[2016-10-17 07:24] LABS: HEMATOCRIT 27.4 % (37.9-51.0); HGB HCT DIFFERENCE -0.4; MEAN CORPUSCULAR HEMOGLOBIN 31.5 pg (27.0-33.4); MEAN CORPUSCULAR HGB CONC 32.9 g/dL (32.0-36.0); MEAN CORPUSCULAR VOLUME 96 fl (80-97); RED BLOOD COUNT 2.86 10^6/uL (4.35-5.55); RED CELL DISTRIBUTION WIDTH 19.6 % (11.5-14.0); WHITE BLOOD COUNT 8.8 10^3/uL (4.0-10.5)
[2016-10-17 07:43] LABS: ANION GAP 7 (5-19); BLOOD UREA NITROGEN 16 mg/dL (7-20); CALCIUM 7.6 mg/dL (8.4-10.2); CARBON DIOXIDE 23 mmol/L (22-30); CHLORIDE 106 mmol/L (98-107); CREATININE RESULT 0.96 mg/dL (0.52-1.25); GLUCOSE 64 mg/dL (75-110); MAGNESIUM 2.4 mg/dL (1.6-2.3); POTASSIUM 4.3 mmol/L (3.6-5.0); SODIUM 135.7 mmol/L (137-145)
[2016-10-17] MEDS: IPRATROPIUM/ALBUTEROL 0.5-2.5 MG/3 ML AMPUL NEB SCH ×3 (08:46→20:02)
[2016-10-17] MEDS: FERROUS SULFATE 325 MG TABLET PO SCH ×2 (11:00→18:04)
[2016-10-17] MEDS: GUAIFENESIN 600 MG TABLET.SA PO SCH ×2 (11:01→21:25)
[2016-10-17] MEDS: FINASTERIDE 5 MG TABLET PO SCH (11:01)
[2016-10-17] MEDS: AZITHROMYCIN 250 MG TABLET PO SCH (11:01)
[2016-10-17] MEDS: CEFUROXIME 500 MG TABLET PO SCH ×2 (11:02→18:04)
[2016-10-17] MEDS: BICALUTAMIDE 50 MG TABLET PO SCH (11:02)
[2016-10-17] MEDS: LEVOTHYROXINE SODIUM 0.075 MG TABLET PO SCH (11:02)
[2016-10-17] MEDS: METOPROLOL SUCCINATE 25 MG TAB.SR.24H PO SCH ×2 (11:02→21:25)
[2016-10-17] MEDS: PREDNISONE 5 MG TABLET PO SCH ×2 (11:02→18:04)
[2016-10-17] MEDS: SENNOSIDES/DOCUSATE 8.6-50 MG 1 EACH TABLET PO SCH (11:04)
--- NOTE | 2016-10-17 13:34 | PDOC PROGRESS REPORT ---
Subjective Progress Note for:: 10/17/16 Subjective:: Patient denies overt diarrhea but does admit to some loose stool. Patient denies chest pain, shortness of breath, abdominal pain, nausea, vomiting , fevers, chills, constipation, headache, new onset weakness. Physical Exam Vital Signs: Temp Pulse Resp BP Pulse Ox 98.2 F 85 19 121/70 98 10/17/16 03:12 10/17/16 03:12 10/17/16 03:12 10/17/16 03:12 10/17/16 03:12 Intake & Output 10/16/16 10/17/16 10/18/16 06:59 06:59 07:59 Intake Total 1090 1010 Output Total 1300 902 Balance -210 108 Weight 59.2 kg 57.4 kg Exam: General: Awake alert and oriented x3, no acute respiratory distress HEENT: AT/NC, PERRL, EOMI, oropharynx is moist, pink, no scleral icterus, no conjunctival injection Neck: No JVD, trachea midline Chest: Port to right upper chest, Clear to auscultation bilaterally, no wheezes rhonchi or rales CV: Regular rate and rhythm, normal S1 and S2, no murmur, rub, or gallop Abdomen: Soft, nontender to palpation, nondistended, active bowel sounds; no rebound, rigidity, or guarding Extremities: No cyanosis, clubbing or edema Neuro: Cranial nerves II through XII are grossly intact without focal deficits; awake alert and oriented x3 Psych: Normal mood and affect Results Laboratory Results: 10/17/16 05:00 10/17/16 05:00 10/17/16 10/17/16 05:00 05:00 WBC 8.8 RBC 2.86 L Hgb 9.0 L Hct 27.4 L MCV 96 MCH 31.5 MCHC 32.9 RDW 19.6 H Plt Count 153 Sodium 135.7 L Potassium 4.3 Chloride 106 Carbon Dioxide 23 Anion Gap 7 BUN 16 Creatinine 0.96 Est GFR ( Amer) > 60 Est GFR (Non-Af Amer) > 60 Glucose 64 L Calcium 7.6 L Magnesium 2.4 H 10/11/16 05:30 NT-Pro-B Natriuret Pep 3680 H Impressions: Chest X-Ray 10/10/16 10:50 IMPRESSION: NO ACUTE RADIOGRAPHIC FINDING IN THE CHEST. Chest/Abdomen CTA 10/10/16 10:50 IMPRESSION: 1. No PE. 2. Lower lobe airspace disease. In the appropriate clinical setting this is consistent with pneumonia. 3. The benign bone metastasis. Assessment & Plan - Diagnosis (1) Acute hypoxemic respiratory failure Is this a current diagnosis for this admission?: YesPlan: Continue oxygen as needed. Treatment for pneumonia. Patient will need 3 additional days of antibiotics. (2) Chronic diastolic heart failure Is this a current diagnosis for this admission?: YesPlan: Currently euvolemic. (3) Pneumonia Qualifiers: Pneumonia type: due to unspecified organism Laterality: left Lung location: lower lobe of lung Qualified Code(s): J18.1 - Lobar pneumonia, unspecified organism Is this a current diagnosis for this admission?: YesPlan: Blood cultures currently negative, unable to obtain sputum. Patient currently on Ceftin and azithromycin. Continue this. Consider repeat chest x-ray. (4) Acute renal failure superimposed on stage 3 chronic kidney disease Is this a current diagnosis for this admission?: YesPlan: Patient appears to be at baseline for his creatinine. Will discontinue IV fluids. (5) Coronary artery disease Is this a current diagnosis for this admission?: Yes (6) Hypothyroid Qualifiers: Hypothyroidism type: acquired Qualified Code(s): E03.9 - Hypothyroidism, unspecified Is this a current diagnosis for this admission?: Yes (7) Left bundle branch block Is this a current diagnosis for this admission?: Yes (8) Prostate cancer Is this a current diagnosis for this admission?: YesPlan: Continue Percocet for pain. Defer to oncology. - Time Time Spent with patient: 25-34 minutes Medications reviewed and adjusted accordingly: Yes
[2016-10-17] MEDS: MEGESTROL ACETATE SUSP 400 MG/10 ML UDCUP PO SCH (16:22)
[2016-10-17] MEDS: LACTOBACILLUS ACIDOPHILUS 250 MG TAB PO SCH (18:04)
[2016-10-17] MEDS: MONTELUKAST SODIUM 10 MG TABLET PO SCH (21:25)
[2016-10-17] MEDS: DOXAZOSIN MESYLATE 2 MG TABLET PO SCH (21:26)
[2016-10-18] MEDS: CALCIUM CARBONATE 250 MG/VITAMIN D3 125 UNIT TABLET PO SCH ×3 (07:02→21:15)
[2016-10-18] MEDS: LANSOPRAZOLE 30 MG TAB.RAP.DR PO SCH ×2 (07:02→17:45)
[2016-10-18] MEDS: HEPARIN SOD (PORCINE) 5,000 UNIT/ML 1 ML SYRINGE SUBCUT SCH ×3 (07:03→21:16)
[2016-10-18] MEDS: IPRATROPIUM/ALBUTEROL 0.5-2.5 MG/3 ML AMPUL NEB SCH ×3 (08:09→20:12)
[2016-10-18] MEDS: FERROUS SULFATE 325 MG TABLET PO SCH ×2 (09:13→17:45)
[2016-10-18] MEDS: FINASTERIDE 5 MG TABLET PO SCH (09:13)
[2016-10-18] MEDS: LEVOTHYROXINE SODIUM 0.075 MG TABLET PO SCH (09:13)
[2016-10-18] MEDS: LACTOBACILLUS ACIDOPHILUS 250 MG TAB PO SCH ×2 (09:13→17:45)
[2016-10-18] MEDS: MEGESTROL ACETATE SUSP 400 MG/10 ML UDCUP PO SCH (09:13)
[2016-10-18] MEDS: AZITHROMYCIN 250 MG TABLET PO SCH (09:13)
[2016-10-18] MEDS: PREDNISONE 5 MG TABLET PO SCH ×2 (09:14→17:45)
[2016-10-18] MEDS: BICALUTAMIDE 50 MG TABLET PO SCH (09:14)
[2016-10-18] MEDS: METOPROLOL SUCCINATE 25 MG TAB.SR.24H PO SCH ×2 (09:14→21:15)
[2016-10-18] MEDS: GUAIFENESIN 600 MG TABLET.SA PO SCH ×2 (09:14→21:15)
[2016-10-18] MEDS: CEFUROXIME 500 MG TABLET PO SCH ×2 (09:14→17:45)
[2016-10-18] MEDS: DOXAZOSIN MESYLATE 2 MG TABLET PO SCH (21:16)
[2016-10-18] MEDS: MONTELUKAST SODIUM 10 MG TABLET PO SCH (21:16)
[2016-10-19] MEDS: LANSOPRAZOLE 30 MG TAB.RAP.DR PO SCH ×2 (06:41→17:39)
[2016-10-19] MEDS: CALCIUM CARBONATE 250 MG/VITAMIN D3 125 UNIT TABLET PO SCH ×2 (06:41→13:46)
[2016-10-19] MEDS: HEPARIN SOD (PORCINE) 5,000 UNIT/ML 1 ML SYRINGE SUBCUT SCH ×2 (06:42→13:46)
[2016-10-19] MEDS: IPRATROPIUM/ALBUTEROL 0.5-2.5 MG/3 ML AMPUL NEB SCH ×3 (08:16→20:04)
[2016-10-19] MEDS: LACTOBACILLUS ACIDOPHILUS 250 MG TAB PO SCH ×2 (09:30→17:39)
[2016-10-19] MEDS: AZITHROMYCIN 250 MG TABLET PO SCH (09:31)
[2016-10-19] MEDS: PREDNISONE 5 MG TABLET PO SCH ×2 (09:31→17:39)
[2016-10-19] MEDS: GUAIFENESIN 600 MG TABLET.SA PO SCH (09:31)
[2016-10-19] MEDS: MEGESTROL ACETATE SUSP 400 MG/10 ML UDCUP PO SCH (09:31)
[2016-10-19] MEDS: METOPROLOL SUCCINATE 25 MG TAB.SR.24H PO SCH (09:31)
[2016-10-19] MEDS: FERROUS SULFATE 325 MG TABLET PO SCH ×2 (09:31→17:39)
[2016-10-19] MEDS: FINASTERIDE 5 MG TABLET PO SCH (09:31)
[2016-10-19] MEDS: LEVOTHYROXINE SODIUM 0.075 MG TABLET PO SCH (09:32)
[2016-10-19] MEDS: BICALUTAMIDE 50 MG TABLET PO SCH (09:32)
[2016-10-19] MEDS: CEFUROXIME 500 MG TABLET PO SCH ×2 (09:32→17:39)
--- NOTE | 2016-10-19 16:13 | PDOC PROGRESS REPORT ---
Subjective Progress Note for:: 10/18/16 Subjective:: Patient complains of bilateral elbow swelling. He also improved reports improved appetite. Patient denies chest pain, shortness of breath, abdominal pain, nausea, vomiting , fevers, chills, diarrhea, constipation, headache, new onset weakness. Physical Exam Vital Signs: Temp Pulse Resp BP Pulse Ox 97.8 F 81 18 136/66 H 100 10/18/16 07:19 10/18/16 07:19 10/18/16 07:19 10/18/16 07:19 10/18/16 07:19 Intake & Output 10/17/16 10/18/16 10/19/16 05:59 06:59 06:59 Intake Total Output Total Balance Weight Exam: General: Awake alert and oriented x3, no acute respiratory distress HEENT: AT/NC, PERRL, EOMI, oropharynx is moist, pink, no scleral icterus, no conjunctival injection Neck: No JVD, trachea midline Chest: Port to right upper chest, Clear to auscultation bilaterally, no wheezes rhonchi or rales CV: Regular rate and rhythm, normal S1 and S2, no murmur, rub, or gallop Abdomen: Soft, nontender to palpation, nondistended, active bowel sounds; no rebound, rigidity, or guarding Extremities: No cyanosis, clubbing; patient has 2+ bilateral elbow edema limited to dependent portion of arms bilaterally Neuro: Cranial nerves II through XII are grossly intact without focal deficits; awake alert and oriented x3 Psych: Normal mood and affect Results Laboratory Results: 10/17/16 05:00 10/17/16 05:00 10/11/16 05:30 NT-Pro-B Natriuret Pep 3680 H Impressions: Chest X-Ray 10/10/16 10:50 IMPRESSION: NO ACUTE RADIOGRAPHIC FINDING IN THE CHEST. Chest/Abdomen CTA 10/10/16 10:50 IMPRESSION: 1. No PE. 2. Lower lobe airspace disease. In the appropriate clinical setting this is consistent with pneumonia. 3. The benign bone metastasis. Assessment & Plan - Diagnosis (1) Acute hypoxemic respiratory failure Is this a current diagnosis for this admission?: YesPlan: Continue oxygen as needed. Treatment for pneumonia. Patient will need 2 additional days of antibiotics. (2) Chronic diastolic heart failure Is this a current diagnosis for this admission?: YesPlan: Currently euvolemic. Patient on metoprolol. Patient's EF greater than 40%. (3) Pneumonia Qualifiers: Pneumonia type: due to unspecified organism Laterality: left Lung location: lower lobe of lung Qualified Code(s): J18.1 - Lobar pneumonia, unspecified organism Is this a current diagnosis for this admission?: YesPlan: Blood cultures currently negative, unable to obtain sputum. Patient currently on Ceftin and azithromycin. Day #8 of 10 (4) Acute renal failure superimposed on stage 3 chronic kidney disease Is this a current diagnosis for this admission?: YesPlan: Patient appears to be at baseline for his creatinine. (5) Coronary artery disease Is this a current diagnosis for this admission?: Yes (6) Hypothyroid Qualifiers: Hypothyroidism type: acquired Qualified Code(s): E03.9 - Hypothyroidism, unspecified Is this a current diagnosis for this admission?: YesPlan: On Synthroid (7) Left bundle branch block Is this a current diagnosis for this admission?: Yes (8) Prostate cancer Is this a current diagnosis for this admission?: Yes (9) Protein-calorie malnutrition, mild Is this a current diagnosis for this admission?: YesPlan: Patient with a BMI of 17.8. Patient has generalized weakness. This is contributing to his difficulty in improving clinically. Supplements have been ordered for patient and he refuses to take them. Megace has been initiated. - Time Time Spent with patient: 25-34 minutes Medications reviewed and adjusted accordingly: Yes Anticipated discharge: Acute Rehab Within: when bed available
--- NOTE | 2016-10-19 16:15 | PDOC PROGRESS REPORT ---
Subjective Progress Note for:: 10/19/16 Subjective:: Patient reports that he does not want to drink ensure or try Magic cup. No new complaints. Patient reports he has not had a bowel movement in 2 days, but states "I don't want to have a bowel movement." Patient denies chest pain, shortness of breath, abdominal pain, nausea, vomiting , fevers, chills, diarrhea, constipation, headache, new onset weakness. Physical Exam Vital Signs: Temp Pulse Resp BP Pulse Ox 98.1 F 88 16 138/72 H 98 10/19/16 08:15 10/19/16 08:16 10/19/16 08:16 10/19/16 08:15 10/19/16 08:16 Intake & Output 10/18/16 10/19/16 10/20/16 06:59 06:59 06:59 Intake Total 600 Output Total 800 Balance -200 Weight Exam: General: Awake alert and oriented x3, no acute respiratory distress HEENT: AT/NC, PERRL, EOMI, oropharynx is moist, pink, no scleral icterus, no conjunctival injection Neck: No JVD, trachea midline Chest: Port to right upper chest, Clear to auscultation bilaterally, no wheezes rhonchi or rales CV: Regular rate and rhythm, normal S1 and S2, no murmur, rub, or gallop Abdomen: Soft, nontender to palpation, nondistended, active bowel sounds; no rebound, rigidity, or guarding Extremities: No cyanosis, clubbing or edema Neuro: Cranial nerves II through XII are grossly intact without focal deficits; awake alert and oriented x3 Psych: Normal mood and affect Results Laboratory Results: 10/17/16 05:00 10/17/16 05:00 10/11/16 05:30 NT-Pro-B Natriuret Pep 3680 H Impressions: Chest X-Ray 10/10/16 10:50 IMPRESSION: NO ACUTE RADIOGRAPHIC FINDING IN THE CHEST. Chest/Abdomen CTA 10/10/16 10:50 IMPRESSION: 1. No PE. 2. Lower lobe airspace disease. In the appropriate clinical setting this is consistent with pneumonia. 3. The benign bone metastasis. Assessment & Plan - Diagnosis (1) Acute hypoxemic respiratory failure Is this a current diagnosis for this admission?: YesPlan: Continue oxygen as needed. Treatment for pneumonia. Patient will need 2 additional days of antibiotics. (2) Chronic diastolic heart failure Is this a current diagnosis for this admission?: YesPlan: Currently euvolemic. Patient on metoprolol. Patient's EF greater than 40%. (3) Pneumonia Qualifiers: Pneumonia type: due to unspecified organism Laterality: left Lung location: lower lobe of lung Qualified Code(s): J18.1 - Lobar pneumonia, unspecified organism Is this a current diagnosis for this admission?: YesPlan: Blood cultures currently negative, unable to obtain sputum. Patient currently on Ceftin and azithromycin. Day #8 of 10 (4) Acute renal failure superimposed on stage 3 chronic kidney disease Is this a current diagnosis for this admission?: YesPlan: Patient appears to be at baseline for his creatinine. (5) Coronary artery disease Is this a current diagnosis for this admission?: Yes (6) Hypothyroid Qualifiers: Hypothyroidism type: acquired Qualified Code(s): E03.9 - Hypothyroidism, unspecified Is this a current diagnosis for this admission?: YesPlan: On Synthroid (7) Left bundle branch block Is this a current diagnosis for this admission?: Yes (8) Prostate cancer Is this a current diagnosis for this admission?: Yes (9) Protein-calorie malnutrition, mild Is this a current diagnosis for this admission?: YesPlan: Patient with a BMI of 17.8. Patient has generalized weakness. This is contributing to his difficulty in improving clinically. Supplements have been ordered for patient and he refuses to take them. Megace has been initiated. - Time Time Spent with patient: 25-34 minutes Medications reviewed and adjusted accordingly: Yes Anticipated discharge: Acute Rehab
[2016-10-20] MEDS: GUAIFENESIN 600 MG TABLET.SA PO SCH ×3 (00:03→22:38)
[2016-10-20] MEDS: METOPROLOL SUCCINATE 25 MG TAB.SR.24H PO SCH ×3 (00:06→22:41)
[2016-10-20] MEDS: MONTELUKAST SODIUM 10 MG TABLET PO SCH ×2 (00:06→22:42)
[2016-10-20] MEDS: CALCIUM CARBONATE 250 MG/VITAMIN D3 125 UNIT TABLET PO SCH ×4 (00:06→22:40)
[2016-10-20] MEDS: HEPARIN SOD (PORCINE) 5,000 UNIT/ML 1 ML SYRINGE SUBCUT SCH ×4 (00:07→22:42)
[2016-10-20] MEDS: DOXAZOSIN MESYLATE 2 MG TABLET PO SCH ×2 (00:08→22:47)
[2016-10-20] MEDS: LANSOPRAZOLE 30 MG TAB.RAP.DR PO SCH ×2 (06:00→17:56)
[2016-10-20] MEDS: IPRATROPIUM/ALBUTEROL 0.5-2.5 MG/3 ML AMPUL NEB SCH ×3 (08:43→20:07)
[2016-10-20] MEDS: MEGESTROL ACETATE SUSP 400 MG/10 ML UDCUP PO SCH (09:05)
[2016-10-20] MEDS: CEFUROXIME 500 MG TABLET PO SCH ×2 (09:05→17:57)
[2016-10-20] MEDS: BICALUTAMIDE 50 MG TABLET PO SCH (09:05)
[2016-10-20] MEDS: FINASTERIDE 5 MG TABLET PO SCH (09:06)
[2016-10-20] MEDS: LEVOTHYROXINE SODIUM 0.075 MG TABLET PO SCH (09:06)
[2016-10-20] MEDS: PREDNISONE 5 MG TABLET PO SCH ×2 (09:59→17:56)
[2016-10-20] MEDS: LACTOBACILLUS ACIDOPHILUS 250 MG TAB PO SCH ×2 (09:59→17:57)
[2016-10-20] MEDS: FERROUS SULFATE 325 MG TABLET PO SCH ×2 (09:59→17:56)
--- NOTE | 2016-10-20 23:26 | PDOC PROGRESS REPORT ---
Subjective Progress Note for:: 10/20/16 Subjective:: Patient denies chest pain, shortness of breath, abdominal pain, nausea, vomiting , fevers, chills, diarrhea, constipation, headache, new onset weakness. Physical Exam Vital Signs: Temp Pulse Resp BP Pulse Ox 98.7 F 83 20 132/63 H 95 10/20/16 05:02 10/20/16 05:02 10/20/16 05:02 10/20/16 05:02 10/20/16 05:02 Intake & Output 10/19/16 10/20/16 10/21/16 06:59 06:59 06:59 Intake Total 600 1440 Output Total 800 1400 Balance -200 40 Weight 56.4 kg 55.4 kg Exam: General: Awake alert and oriented x3, no acute respiratory distress HEENT: AT/NC, PERRL, EOMI, oropharynx is moist, pink, no scleral icterus, no conjunctival injection Neck: No JVD, trachea midline Chest: Port to right upper chest, Clear to auscultation bilaterally, no wheezes rhonchi or rales CV: Regular rate and rhythm, normal S1 and S2, no murmur, rub, or gallop Abdomen: Soft, nontender to palpation, nondistended, active bowel sounds; no rebound, rigidity, or guarding Extremities: No cyanosis, clubbing or edema Neuro: Cranial nerves II through XII are grossly intact without focal deficits; awake alert and oriented x3 Psych: Normal mood and affect Results Laboratory Results: 10/17/16 05:00 10/17/16 05:00 10/11/16 05:30 NT-Pro-B Natriuret Pep 3680 H Impressions: Chest X-Ray 10/10/16 10:50 IMPRESSION: NO ACUTE RADIOGRAPHIC FINDING IN THE CHEST. Chest/Abdomen CTA 10/10/16 10:50 IMPRESSION: 1. No PE. 2. Lower lobe airspace disease. In the appropriate clinical setting this is consistent with pneumonia. 3. The benign bone metastasis. Assessment & Plan - Diagnosis (1) Acute hypoxemic respiratory failure Is this a current diagnosis for this admission?: YesPlan: Continue oxygen as needed. Treatment for pneumonia. Patient will need 1additional days of antibiotics. (2) Chronic diastolic heart failure Is this a current diagnosis for this admission?: YesPlan: Currently euvolemic. Patient on metoprolol. Patient's EF greater than 40%. (3) Pneumonia Qualifiers: Pneumonia type: due to unspecified organism Laterality: left Lung location: lower lobe of lung Qualified Code(s): J18.1 - Lobar pneumonia, unspecified organism Is this a current diagnosis for this admission?: YesPlan: Blood cultures currently negative, unable to obtain sputum. Patient currently on Ceftin and azithromycin. Day #9 of 10 (4) Acute renal failure superimposed on stage 3 chronic kidney disease Is this a current diagnosis for this admission?: YesPlan: Patient appears to be at baseline for his creatinine. (5) Coronary artery disease Is this a current diagnosis for this admission?: Yes (6) Hypothyroid Qualifiers: Hypothyroidism type: acquired Qualified Code(s): E03.9 - Hypothyroidism, unspecified Is this a current diagnosis for this admission?: Yes (7) Left bundle branch block Is this a current diagnosis for this admission?: Yes (8) Prostate cancer Is this a current diagnosis for this admission?: Yes (9) Protein-calorie malnutrition, mild Is this a current diagnosis for this admission?: Yes - Time Time Spent with patient: 15-24 minutes Medications reviewed and adjusted accordingly: Yes Anticipated discharge: Acute Rehab Within: when bed available
--- NOTE | 2016-10-20 23:51 | Progress Note ---
Provider Note Provider Note: Palliative Care Follow up note: Visit 11:40AM- 12:05 PM 10/20/16 S: Patient asleep again today. but did awaken when I came in. He states he is just exhausted and feels very tired and weak. He did not walk in the halls today as he had on Wednesday. He said sitting in the chair next to his bed yesterday wore him out. He denies pain or nausea, but still says he cannot eat as food is just not appealing to him. Mr. Serna denies dyspnea or cough. He says he is sleeping well wiht no distress. O: ALert, oriented, very frail and weak. BS CTA , not well heard in bases. No upper airway congestion and no noted cough Heart rate regular , no gallop Abd soft, nontender. Weakly moves legs, no edema A/P: Resolving respiratory distress/ pneumonia: antibiotics about to be completed Poor appetite: on Megace per hospitalist, will see if it helps Weakness: unable to ambulate: Awaiting placement in SNF for rehab. Certainly unable to go home. Advance directives: Discussed CPR and mechanical ventilation again with patient: He does not want to change his status and says he wants everything done if he has an arrest. Will follow with patietn for emotional support.
[2016-10-21] MEDS: CALCIUM CARBONATE 250 MG/VITAMIN D3 125 UNIT TABLET PO SCH ×3 (06:24→22:51)
[2016-10-21] MEDS: LANSOPRAZOLE 30 MG TAB.RAP.DR PO SCH ×2 (06:25→16:14)
[2016-10-21] MEDS: HEPARIN SOD (PORCINE) 5,000 UNIT/ML 1 ML SYRINGE SUBCUT SCH ×3 (06:27→23:30)
[2016-10-21] MEDS: IPRATROPIUM/ALBUTEROL 0.5-2.5 MG/3 ML AMPUL NEB SCH (08:49)
[2016-10-21] MEDS: MEGESTROL ACETATE SUSP 400 MG/10 ML UDCUP PO SCH (10:32)
[2016-10-21] MEDS: PREDNISONE 5 MG TABLET PO SCH ×2 (10:32→18:38)
[2016-10-21] MEDS: FINASTERIDE 5 MG TABLET PO SCH (10:32)
[2016-10-21] MEDS: METOPROLOL SUCCINATE 25 MG TAB.SR.24H PO SCH ×2 (10:32→22:52)
[2016-10-21] MEDS: FERROUS SULFATE 325 MG TABLET PO SCH ×2 (10:32→18:38)
[2016-10-21] MEDS: LEVOTHYROXINE SODIUM 0.075 MG TABLET PO SCH (10:32)
[2016-10-21] MEDS: GUAIFENESIN 600 MG TABLET.SA PO SCH ×2 (10:32→22:51)
[2016-10-21] MEDS: LACTOBACILLUS ACIDOPHILUS 250 MG TAB PO SCH ×2 (10:32→18:38)
[2016-10-21] MEDS: BICALUTAMIDE 50 MG TABLET PO SCH (10:33)
[2016-10-21] MEDS: CEFUROXIME 500 MG TABLET PO SCH ×2 (10:33→18:43)
[2016-10-21] MEDS ORDERED: LOPERAMIDE HCL 2 MG CAPSULE PO PRN (19:30)
--- NOTE | 2016-10-21 19:33 | PDOC PROGRESS REPORT ---
Subjective Progress Note for:: 10/21/16 Subjective:: Patient's seen in earlier today on morning rounds. Patient denies chest pain, shortness of breath, abdominal pain, nausea, vomiting , fevers, chills, diarrhea, constipation, headache, new onset weakness. Physical Exam Vital Signs: Temp Pulse Resp BP Pulse Ox 97.2 F 99 18 114/61 94 10/21/16 03:41 10/21/16 16:00 10/21/16 16:00 10/21/16 03:41 10/21/16 16:00 Intake & Output 10/20/16 10/21/16 10/22/16 06:59 06:59 06:59 Intake Total 1440 750 330 Output Total 1400 475 375 Balance 40 275 -45 Weight 55.4 kg 55.4 kg Exam: General: Awake alert and oriented x3, no acute respiratory distress HEENT: AT/NC, PERRL, EOMI, oropharynx is moist, pink, no scleral icterus, no conjunctival injection Neck: No JVD, trachea midline Chest: Port to right upper chest, Clear to auscultation bilaterally, no wheezes rhonchi or rales CV: Regular rate and rhythm, normal S1 and S2, no murmur, rub, or gallop Abdomen: Soft, nontender to palpation, nondistended, active bowel sounds; no rebound, rigidity, or guarding Extremities: No cyanosis, clubbing or edema Neuro: Cranial nerves II through XII are grossly intact without focal deficits; awake alert and oriented x3 Psych: Normal mood and affect Results Laboratory Results: 10/17/16 05:00 10/17/16 05:00 10/11/16 05:30 NT-Pro-B Natriuret Pep 3680 H Impressions: Chest X-Ray 10/10/16 10:50 IMPRESSION: NO ACUTE RADIOGRAPHIC FINDING IN THE CHEST. Chest/Abdomen CTA 10/10/16 10:50 IMPRESSION: 1. No PE. 2. Lower lobe airspace disease. In the appropriate clinical setting this is consistent with pneumonia. 3. The benign bone metastasis. Assessment & Plan - Diagnosis (1) Acute hypoxemic respiratory failure Is this a current diagnosis for this admission?: YesPlan: Continue oxygen as needed. Treatment for pneumonia. Patient is on final day of antibiotic therapy. (2) Chronic diastolic heart failure Is this a current diagnosis for this admission?: YesPlan: Currently euvolemic. Patient on metoprolol. Patient's EF greater than 40%. (3) Pneumonia Qualifiers: Pneumonia type: due to unspecified organism Laterality: left Lung location: lower lobe of lung Qualified Code(s): J18.1 - Lobar pneumonia, unspecified organism Is this a current diagnosis for this admission?: YesPlan: Blood cultures currently negative, unable to obtain sputum. Patient currently on Ceftin and azithromycin. Day #10 of 10 (4) Acute renal failure superimposed on stage 3 chronic kidney disease Is this a current diagnosis for this admission?: YesPlan: Patient appears to be at baseline for his creatinine. (5) Coronary artery disease Is this a current diagnosis for this admission?: Yes (6) Hypothyroid Qualifiers: Hypothyroidism type: acquired Qualified Code(s): E03.9 - Hypothyroidism, unspecified Is this a current diagnosis for this admission?: Yes (7) Left bundle branch block Is this a current diagnosis for this admission?: Yes (8) Prostate cancer Is this a current diagnosis for this admission?: Yes (9) Protein-calorie malnutrition, mild Is this a current diagnosis for this admission?: Yes (10) Ambulatory dysfunction Is this a current diagnosis for this admission?: YesPlan: Patient is currently pending rehabilitation placement. - Time Time Spent with patient: 15-24 minutes
[2016-10-21] MEDS: DOXAZOSIN MESYLATE 2 MG TABLET PO SCH (22:51)
[2016-10-21] MEDS: MONTELUKAST SODIUM 10 MG TABLET PO SCH (22:52)
[2016-10-22] MEDS: CALCIUM CARBONATE 250 MG/VITAMIN D3 125 UNIT TABLET PO SCH ×2 (06:19→15:37)
[2016-10-22] MEDS: LANSOPRAZOLE 30 MG TAB.RAP.DR PO SCH ×2 (06:19→17:58)
[2016-10-22] MEDS: HEPARIN SOD (PORCINE) 5,000 UNIT/ML 1 ML SYRINGE SUBCUT SCH ×2 (06:24→15:37)
--- NOTE | 2016-10-22 09:23 | PDOC TRANSFER SUMMARY ---
General - Admit/Disc Date/PCP Admission Date/Primary Care Provider: 10/10/16 13:16 WILBERT WETZEL MD Discharge Date: 10/22/16 - Discharge Diagnosis (1) Acute hypoxemic respiratory failure Is this a current diagnosis for this admission?: Yes (2) Chronic diastolic heart failure Is this a current diagnosis for this admission?: Yes (3) Pneumonia Is this a current diagnosis for this admission?: Yes (4) Acute renal failure superimposed on stage 3 chronic kidney disease Is this a current diagnosis for this admission?: Yes (5) Coronary artery disease Is this a current diagnosis for this admission?: Yes (6) Hypothyroid Is this a current diagnosis for this admission?: Yes (7) Left bundle branch block Is this a current diagnosis for this admission?: Yes (8) Prostate cancer Is this a current diagnosis for this admission?: Yes (9) Protein-calorie malnutrition, mild Is this a current diagnosis for this admission?: Yes (10) Ambulatory dysfunction Is this a current diagnosis for this admission?: Yes - Additional Information Resuscitation Status: Full Code Discharge Diet: As Tolerated, Regular Discharge Activity: Activity As Tolerated, Balance Activity w/Rest, Slowly Increase Activity, Weigh Daily Home Medications: Hydralazine HCl [Apresoline 10 mg Tablet] 10 mg PO Q8 #90 tablet 04/03/15 Ipratropium/Albuterol Sulfate [Combivent Inhaler] 14.7 gm IH Q4H PRN #1 aer.w.adap 04/03/15 Abiraterone Acetate [Zytiga 250 mg Tablet] 1,000 mg PO DAILY 10/10/16 Bicalutamide [Casodex 50 mg Tablet] 50 mg PO DAILY 10/10/16 Calcium Carbonate/Vitamin D3 [Calcium 500-Vit D3 400 Tablet] 2 each PO Q8 Doxazosin Mesylate [Cardura 2 mg Tablet] 2 mg PO QHS 10/10/16 Finasteride [Proscar 5 mg Tablet] 5 mg PO DAILY 10/10/16 Furosemide [Lasix] 20 mg PO MOWEFR@1000 10/10/16 Metoprolol Succinate [Toprol Xl 25 mg Tab.sr] 25 mg PO Q12 10/10/16 Prednisone [Deltasone 5 mg Tablet] 5 mg PO BID 10/10/16 Albuterol Sulfate [Ventolin 0.042% Neb 1.25 mg/3 mL Ampul] 1.25 mg NEB RTQ4HP PRN vial.neb 10/22/16 Benzonatate [Tessalon Perles 100 mg Capsule] 100 mg PO Q8HP PRN capsule Enzalutamide [Xtandi] 40 mg PO .DAILY 10/22/16 Ferrous Sulfate [Feosol 325 mg Tablet] 325 mg PO BID tablet 10/22/16 Levothyroxine Sodium [Synthroid 0.075 mg Tablet] 0.075 mg PO DAILY tablet 10/22 Loperamide HCl [Imodium 2 mg Capsule] 2 mg PO Q4HP PRN capsule 10/22/16 Megestrol Acetate [Megace Sondra 400 mg/10 ml Udcup] 400 mg PO DAILY udc Montelukast Sodium [Singulair 10 mg Tablet] 10 mg PO QHS tablet 10/22/16 History of Present Illness Admission Date/PCP: 10/10/16 13:16 WILBERT WETZEL MD History of Present Illness: DANNY RODRIGUEZ is a 86 year old male with past medical history of 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 He states he has lost over 40 pounds in the last year because he does not feel like eating. He has increasing shortness of breath and dyspnea over the last several days. He has a moist productive cough. Denies any fever or chills. He denies any nausea, vomiting, or abdominal pain. He denies any chest pain, dizziness or or headaches. He denies any dysuria. He was found to be hypoxemic on room air with an oxygen saturation of 87%. He underwent chest x-ray and CT a chest and abdomen. His found to have a left lower lobe pneumonia. He is now saturating well on 2 L oxygen per minute. He denies again any fever or flulike symptoms. Hospital Course Hospital Course: Patient was admitted and placed on IV antibiotics and transitioned to oral. Patient completed 10 day course of antibiotics for his pneumonia. CXR documenting resolution. Remainder of course unremarkable. Patient with protein calorie malnutrition and metastatic prostate cancer. Patient seen by palliative care team and several physicians. Patient elected to remain full code. Physical Exam Vital Signs: Temp Pulse Resp BP Pulse Ox 97.9 F 90 18 113/64 97 10/22/16 08:00 10/22/16 07:33 10/22/16 07:33 10/22/16 07:33 10/22/16 07:33 Intake & Output 10/21/16 10/22/16 10/23/16 06:59 06:59 06:59 Intake Total 750 690 Output Total 475 675 Balance 275 15 Weight 55.4 kg 55.4 kg Exam: General: Awake alert and oriented x3, no acute respiratory distress HEENT: AT/NC, PERRL, EOMI, oropharynx is moist, pink, no scleral icterus, no conjunctival injection Neck: No JVD, trachea midline Chest: Port to right upper chest, Clear to auscultation bilaterally, no wheezes rhonchi or rales CV: Regular rate and rhythm, normal S1 and S2, no murmur, rub, or gallop Abdomen: Soft, nontender to palpation, nondistended, active bowel sounds; no rebound, rigidity, or guarding Extremities: No cyanosis, clubbing or edema Neuro: Cranial nerves II through XII are grossly intact without focal deficits; awake alert and oriented x3 Psych: Normal mood and affect Results Laboratory Results: 10/17/16 05:00 10/17/16 05:00 10/11/16 05:30 NT-Pro-B Natriuret Pep 3680 H Impressions: Chest X-Ray 10/10/16 10:50 IMPRESSION: NO ACUTE RADIOGRAPHIC FINDING IN THE CHEST. Chest/Abdomen CTA 10/10/16 10:50 IMPRESSION: 1. No PE. 2. Lower lobe airspace disease. In the appropriate clinical setting this is consistent with pneumonia. 3. The benign bone metastasis. Transfer Plan - Time Spent with Patient Time spent with patient: Less than 30 Minutes Qualifiers PATEINT BEING DISCHARGED WITH ANY OF THE FOLLOWING DIAGNOSIS?: No Plan Time Spent: Less than 30 Minutes
[2016-10-22] MEDS: PREDNISONE 5 MG TABLET PO SCH ×2 (10:11→17:58)
[2016-10-22] MEDS: FERROUS SULFATE 325 MG TABLET PO SCH ×2 (10:11→17:58)
[2016-10-22] MEDS: LACTOBACILLUS ACIDOPHILUS 250 MG TAB PO SCH ×2 (10:11→17:58)
[2016-10-22] MEDS: FINASTERIDE 5 MG TABLET PO SCH (10:11)
[2016-10-22] MEDS: BICALUTAMIDE 50 MG TABLET PO SCH (10:11)
[2016-10-22] MEDS: LEVOTHYROXINE SODIUM 0.075 MG TABLET PO SCH (10:11)
[2016-10-22] MEDS: MEGESTROL ACETATE SUSP 400 MG/10 ML UDCUP PO SCH (10:11)
[2016-10-22] MEDS: METOPROLOL SUCCINATE 25 MG TAB.SR.24H PO SCH (10:11)
[2016-10-22] MEDS: GUAIFENESIN 600 MG TABLET.SA PO SCH (10:11)
--- NOTE | 2016-10-22 14:28 | Progress Note ---
Provider Note Provider Note: This is an addendum to transfer summary labeled 10/22/2016: Patient will not be taking Zytiga or Xtandi. Otherwise discharge medications remain unchanged.
[2016-10-22 17:08] VITALS: BP 128/66
== END 2016-10-22 20:10 | DRG 193 ==
LOC: ER 10:12 → EH 13:16 → UNDOADMIN 13:27 → 5 17:33
PROVIDERS: ADMIT Family Medicine; ATTEND Family Medicine
DX: J18.1 Lobar pneumonia, unspecified organism (principal); I50.33 Acute on chronic diastolic (congestive) heart failure; J96.01 Acute respiratory failure with hypoxia; C79.51 Secondary malignant neoplasm of bone; I13.0 Hypertensive heart and chronic kidney disease with heart failure and stage 1 through stage 4 chronic kidney disease, or unspecified chronic kidney disease; N17.9 Acute kidney failure, unspecified; E44.1 Mild protein-calorie malnutrition; Z68.1 Body mass index [BMI] 19.9 or less, adult; C61 Malignant neoplasm of prostate; N18.3 Chronic kidney disease, stage 3 (moderate); E03.9 Hypothyroidism, unspecified; E83.51 Hypocalcemia; R33.9 Retention of urine, unspecified; I44.7 Left bundle-branch block, unspecified; R53.1 Weakness; Z74.2 Need for assistance at home and no other household member able to render care; I25.2 Old myocardial infarction
CPT/HCPCS: 36415; 36591; 71010; 71275; 80048; 80076; 81001; 82040; 82550; 83605; 83690; 83735; 83880; 84484; 85025; 85027; 87040; 93005; 93010; 94667; 94668; 94799; 99285; G8978-GP; G8979-GP; J0456; J0610; J0696; J1644; J3490; J7030; J7060; J7512; J7620

== ENCOUNTER 2016-11-25 18:08 | Inpatient (IN) | payer MEDICARE, OTHER ==
[2016-11-25] MEDS ORDERED: NORMAL SALINE 1000 ML 1,000 ML IV ONE ×2 (19:01→22:00)
--- NOTE | 2016-11-25 19:40 | ER Document Report ---
ED General - General Chief Complaint: Problem with Feeding Tube Stated Complaint: FEEDING TUBE PLACEMENT Mode of Arrival: Medic Information source: [facility] Records Notes: This is an 86-year-old [facility] He was sent to the ER today to be admitted for placement of the feeding tube tomorrow. He has no acute complaints at this time. TRAVEL OUTSIDE OF THE [place] IN LAST 30 DAYS: No - Related Data Allergies/Adverse Reactions: flu vaccine Allergy (Uncoded 04/20/16 09:08) Past Medical History - General Information source: [facility] Records Cannot obtain history due to: Dementia - Social History Smoking Status: Unknown if Ever Smoked Drug Abuse: None Lives with: Longterm Family History: None - Past Medical History Cardiac Medical History: Reports: Hx Congestive Heart Failure, Hx Heart Attack - many yrs ago, Hx Hypertension - ? since 03/2015 Denies: Hx Coronary Artery Disease Pulmonary Medical History: Reports: Hx Pneumonia Denies: Hx Asthma, Hx Bronchitis, Hx COPD Neurological Medical History: Denies: Hx Cerebrovascular Accident, Hx Seizures Renal/ Medical History: Reports: Hx Renal Insufficiency. Denies: Hx Peritoneal Dialysis Malignancy Medical History: Reports Hx Bone Cancer, Reports Hx Prostate Cancer Musculoskeltal Medical History: Denies Hx Arthritis Psychiatric Medical History: Denies: Hx Depression Past Surgical History: Reports: Hx Orthopedic Surgery - R ARM, Hx Vascular Surgery - 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 - Immunizations Hx Diphtheria, Pertussis, Tetanus Vaccination: Yes Review of Systems - Review of Systems -: Yes ROS unobtainable due to patient's medical condition Physical Exam - Vital signs Vitals: Temp Pulse Resp BP Pulse Ox 97.2 F 86 18 89/56 L 93 11/25/16 18:45 11/25/16 18:45 11/25/16 18:45 11/25/16 18:45 11/25/16 18:45 - Notes Notes: PHYSICAL EXAMINATION: GENERAL: Thin frail elderly male, alert and conversant, no acute distress. HEAD: Atraumatic, normocephalic. EYES: Pupils equal round and reactive to light, extraocular movements intact, sclera anicteric, conjunctiva are normal. ENT: nares patent, oropharynx clear without exudates. Mucous membranes dry/ tacky. NECK: Normal range of motion, supple without lymphadenopathy LUNGS: Breath sounds clear to auscultation bilaterally and equal. No wheezes rales or rhonchi. HEART: Regular rate and rhythm without murmurs ABDOMEN: Soft, nontender, normoactive bowel sounds. No guarding, no rebound. No masses appreciated. EXTREMITIES: Normal range of motion, no pitting or edema. NEUROLOGICAL: Cranial nerves grossly intact. Motor strength +5/5 bilateral upper and lower extremities, sensation intact PSYCH: Normal mood, normal affect. SKIN: Warm, Dry, normal turgor, no rashes or lesions noted. Course - Re-evaluation Re-evalutation: 11/25/16 19:38 Discussed the case with GI Dr. Lucero who states that patient to be admitted via PCP and he will consult and place PEG tomorrow. 11/25/16 20:35 Discussed the case with primary care doctor Dr. Magana who states that the hospitalist admits senior care patients. 11/25/16 20:35 Lab evaluation demonstrates dehydration with acute kidney injury and hyperkalemia. EKG does show peaked T waves. We will initiate IV dextrose and insulin for hyperkalemia. 11/25/16 20:43 Discussed with nursing staff at [facility]. No acute issue today, but patient has had decreased oral intake and plan is for PEG tomorrow. Patient is a full code. 11/25/16 20:55 Patient discussed with hospitalist Dr. Aj. Repeat blood pressure at this time demonstrates persistent hypotension and fluid bolus has not yet been completed. Will complete the fluid bolus and reassess blood pressure at that point to determine appropriate hospitalization status. 11/25/16 22:31 Patient has had improvement in systolic blood pressure with sustained readings in the mid 90s and the first liter of normal saline has not yet completed. Discussed again with Dr. Aj. At this time the plan is to reassess in another hour after another liter bolus to make decision on whether patient requires ICU admission as we have no ICU beds available at this hospital at this time. 11/25/16 23:45 Patient's blood pressure has continued to improve and is now [address] Aj will admit to IMCU, plan for GI consultation and potential PEG tube placement tomorrow - Vital Signs Vital signs: Temp Pulse Resp BP Pulse Ox 97.2 F 83 14 93/56 L 99 11/25/16 18:45 11/26/16 02:30 11/26/16 04:15 11/26/16 04:16 11/26/16 04:16 - Laboratory Result Diagrams: 11/25/16 19:30 11/25/16 23:20 Laboratory results interpreted by me: 11/25/16 11/25/16 11/25/16 19:30 19:30 23:20 RBC 3.13 L Hgb 9.7 L Hct 29.0 L RDW 21.1 H Plt Count 68 L Seg Neuts % (Manual) 81 H Sodium 129.6 L 131.2 L Potassium 5.8 H 5.1 H Chloride 97 L Carbon Dioxide 17 L 19 L BUN 120 H 113 H Creatinine 2.58 H 2.58 H Est GFR ( Amer) 29 L 29 L Est GFR (Non-Af Amer) 24 L 24 L Calcium 7.7 L 7.1 L Magnesium Total Bilirubin 1.7 H Direct Bilirubin 1.3 H AST 365 H ALT 99 H Alkaline Phosphatase 1462 H Total Protein 5.2 L Albumin 2.5 L TSH Urine Protein Urine Blood Ur Leukocyte Esterase 11/25/16 11/25/16 11/26/16 23:20 23:20 00:15 RBC Hgb Hct RDW Plt Count Seg Neuts % (Manual) Sodium Potassium Chloride Carbon Dioxide BUN Creatinine Est GFR ( Amer) Est GFR (Non-Af Amer) Calcium Magnesium 3.1 H Total Bilirubin Direct Bilirubin AST ALT Alkaline Phosphatase Total Protein Albumin TSH 13.10 H Urine Protein 100 H Urine Blood MODERATE H Ur Leukocyte Esterase LARGE H - EKG Interpretation by Me Additional EKG results interpreted by me: 11/25/16 23:46 EKG at 2024 demonstrates sinus rhythm with intraventricular conduction delay and LVH. There are also noted to be peaked T waves in V2 through V4 Critical Care Note - Critical Care Note Total time excluding time spent on procedures (mins): 50 - minutes of critical care time spent in direct contact evaluating and reevaluating the patient, treating symptoms, reviewing labs and studies and speaking with family and consultants excluding any procedures Discharge - Discharge Clinical Impression: Hyperkalemia, Dehydration, Hyponatremia Acute renal failure Qualifiers: Acute renal failure type: unspecified Qualified Code(s): N17.9 - Acute kidney failure, unspecified Right lower lobe pneumonia Qualifiers: Pneumonia type: due to unspecified organism Qualified Code(s): J18.1 - Lobar pneumonia, unspecified organism Condition: Fair Disposition: ADMITTED INPATIENT Admitting Provider: Hospitalist - Dr. Aj Unit Admitted: [facility]
[2016-11-25 19:47] LABS: HEMOGLOBIN 9.7 g/dL (13.5-17.0); HGB HCT DIFFERENCE 0.1; MEAN CORPUSCULAR HEMOGLOBIN 30.9 pg (27.0-33.4); MEAN CORPUSCULAR HGB CONC 33.3 g/dL (32.0-36.0); MEAN CORPUSCULAR VOLUME 93 fl (80-97); RED BLOOD COUNT 3.13 10^6/uL (4.35-5.55); RED CELL DISTRIBUTION WIDTH 21.1 % (11.5-14.0); WHITE BLOOD COUNT 5.1 10^3/uL (4.0-10.5)
[2016-11-25 20:09] LABS: ALANINE AMINOTRANSFERASE 99 U/L (21-72); ALBUMIN 2.5 g/dL (3.5-5.0); ALKALINE PHOSPHATASE 1462 U/L (38-126); ANION GAP 16 (5-19); ASPARTATE AMINO TRANSFERASE 365 U/L (17-59); BILIRUBIN,DIRECT 1.3 mg/dL (0.0-0.4); BILIRUBIN,TOTAL 1.7 mg/dL (0.2-1.3); CALCIUM 7.7 mg/dL (8.4-10.2); CARBON DIOXIDE 17 mmol/L (22-30); CHLORIDE 97 mmol/L (98-107); GLUCOSE 85 mg/dL (75-110); POTASSIUM 5.8 mmol/L (3.6-5.0); SODIUM 129.6 mmol/L (137-145); TOTAL PROTEIN 5.2 g/dL (6.3-8.2)
[2016-11-25 20:19] LABS: BASOPHILS % (MANUAL) 0 % (0-2); BLOOD UREA NITROGEN 120 mg/dL (7-20); CREATININE RESULT 2.58 mg/dL (0.52-1.25); EOSINOPHILS % (MANUAL) 1 % (0-6); LYMPHOCYTES % (MANUAL) 14 % (13-45); NUCLEATED RED BLOOD CELLS 2 /100 WBC (0); TOTAL CELLS COUNTED 100
[2016-11-25 20:21] LABS: ANISOCYTOSIS 2+; POLYCHROMASIA SLIGHT; TOXIC GRANULATION SLIGHT
[2016-11-25] MEDS ORDERED: DEXTROSE 50%-WATER 25 GM/50 ML DISP.SYRIN IV ONE (20:34)
[2016-11-25] MEDS ORDERED: CALCIUM GLUCONATE 1000 MG/10 ML INJ IV ONE (20:34)
[2016-11-25] MEDS ORDERED: INSULIN REG, HUMAN 100 UNIT/ML 3 ML VIAL (PYX) IV ONE (20:34)
[2016-11-25 23:54] LABS: ANION GAP 10 (5-19); BLOOD UREA NITROGEN 113 mg/dL (7-20); CARBON DIOXIDE 19 mmol/L (22-30); CHLORIDE 102 mmol/L (98-107); CREATININE RESULT 2.58 mg/dL (0.52-1.25); GLUCOSE 85 mg/dL (75-110); POTASSIUM 5.1 mmol/L (3.6-5.0); SODIUM 131.2 mmol/L (137-145)
[2016-11-26 00:03] LABS: CALCIUM 7.1 mg/dL (8.4-10.2)
[2016-11-26] MEDS ORDERED: DEXTROSE 5%-NORMAL SALINE 1,000 ML IV PRN (01:38)
[2016-11-26] MEDS ORDERED: GLUCAGON,HUMAN RECOMB 1 MG INJ SUBCUT PRN (01:40)
[2016-11-26] MEDS ORDERED: DEXTROSE 40% GEL 15 GM TUBE PO PRN ×2 (01:40)
[2016-11-26] MEDS ORDERED: DEXTROSE 50%-WATER 25 GM/50 ML DISP.SYRIN IV PRN ×2 (01:40)
[2016-11-26] MEDS ORDERED: ACETAMINOPHEN 325 MG TABLET PO PRN (01:43)
--- NOTE | 2016-11-26 02:01 | PDOC H&P ---
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 Patient has been discussed with emergency room physician who evaluated the patient. Patient himself has basically no complaints, including nausea vomiting, fever chills, or pain. Simply has an extremely poor appetite, which hss led to approximately 40 pound weight loss over the past [address] Lucero, patient' s filtering machine tender helper, was contacted by the [facility] concerning PEG tube insertion. He instructed them to send the patient to the emergency room for admission. Initial mild hypotension, with systolic pressures in the upper 80s/low 90s. This has responded nicely to a 2 L bolus of saline.. Hospitalized on our service October 10 through the of this year, with discharge diagnoses including acute hypoxic respiratory failure, pneumonia, acute worsening of stage III chronic kidney disease, among other diagnoses. History and physical and discharge summary have been reviewed. Laboratory results are listed in [employer] and are reviewed. X-ray summary results are listed below, with full report(s) reviewed. . EKG reviewed. And compared to a tracing from October 10 of this year. Social history/personal habits: . Currently resides at [facility]. Retired. No use of alcohol tobacco or illicit drugs. Allergies/adverse reactions are listed in [employer] and are reviewed. Home medications senior living medications initially autopopulated into [employer] may not accurately reflect patient's true medications, dosages, and/or frequencies. pc tech to reconcile medications. Unfortunately, patient uncertain of medications/dosages/frequencies. REVIEW OF SYSTEMS: Constitutional: See History and Present illness. Eyes: Wears glasses. ENT: No swallowing problems or complaints. Partial hearing loss. Pulmonary: No current complaints. Cardiovascular: No current complaints, including chest pain. Gastrointestinal: No current complaints, including nausea or vomiting. Skin: No current complaints, including rashes. Hematologic: No unusual easy bruising or bleeding. Neurologic: No current complaints, including numbness or tingling. Nonambulatory for quite some time, according to patient. Musculoskeletal: No current complaints, including painful joints. Psychiatric: No current complaints, including anxiety or depression. Endocrine: No current complaints, including polyuria. Genitourinary: No current complaints, including dysuria. PHYSICAL EXAMINATION: 40.8 kg. Height is not recorded on the chart. Blood pressure 97/59. Pulse 80 and regular. 99% saturation on 3 L oxygen per nasal cannula. Respirations are 25 and unlabored. Temperature 97.2. Frail almost emaciated elderly male appearing approximately his stated age. Pleasant awake alert and cooperative. Mildly anxious, but no paolo agitation. Skin is warm and dry. No grossly obvious evidence of rash in areas of skin examined. Approximately a 3 x 3 cm mobile nontender soft subcutaneous nodule, right anterior chest wall, likely a lipoma. ENT: Mild to moderately hard of hearing to normal conversation. Tongue midline on protrusion pink and slightly tacky. Eyes: No scleral icterus. Pupils equal and reactive to light at 4 mm. [place] conjunctivae. Neck is nontender to palpation. Midline trachea. No palpable thyroid nodule mass enlargement or tenderness. Lymphatic: No palpable cervical or clavicular nodes. Psychiatric: Reasonable insight into acute and chronic medical issues. Oriented to time location and why here. Lungs: Auscultation reveals clear and equal breath sounds bilaterally. No use of accessory respiratory muscles. Cardiovascular: Heart regular rate and rhythm, without gallop murmur or rub. No carotid or abdominal aortic bruits. Faint bilateral symmetric very slightly pitting ankle and pedal edema. Faintly palpable dorsalis pedis pulses. Abdomen: soft, slightly, distended nontender with positive bowel sounds. Unable to adequately evaluate abdomen for masses or organomegaly due to distention. Extremities: Feet are warm and dry. No calf tenderness to compression. No grossly obvious visual evidence of calf swelling. Gentle manipulation of lower extremities fails to reveal any obvious evidence of injury or instability to knees hips or ankles. Minimal lower extremity muscle mass. Neurologic: Patellar reflexes absent. Absent Babinski. Light touch is intact at feet. Dorsiflexion and plantarflexion of feet 5 / 5 and symmetric. Past Medical History Cardiac Medical History: Reports: Congestive Heart Failure, Myocardial Infarction - many yrs ago, Hypertension - ? since 03/2015 Denies: Coronary Artery Disease, DVT, Hyperlipidema, Pulmonary Embolism - Systolic Pulmonary Medical History: Reports: Chronic Obstructive Pulmonary Disease (COPD) , Pneumonia Denies: Asthma, Bronchitis Neurological Medical History: Denies: Hemorrhagic CVA, Ischemic CVA, Seizures Endocrine Medical History: Reports: Hypothyroidism Denies: Diabetes Mellitus Type 1, Diabetes Mellitus Type 2, Hyperthyroidism Malignancy Medical History: Reports: Other - Prostate cancer metastatic to bone. GI Medical History: Reports: Other - Extremely poor appetite. Denies: Cirrhosis, Gastroesophageal Reflux Disease, Hepatitis, Peptic Ulcer Disease Musculoskeltal Medical History: Denies: Arthritis Skin Medical History: Reports: None Psychiatric Medical History: Denies: Alcohol Dependency, Depression, General Anxiety Disorder, Substance Abuse, Tobacco Dependency Hematology: Reports: Anemia Infectious Medical History: Denies: Hepatitis B, Hepatitis C Past Surgical History Past Surgical History: Reports: Orthopedic Surgery - R ARM, Vascular Surgery - 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 Social History Information Source: Patient, Emergency Med Personnel, ON LICENSE OF [facility] Records Lives with: [facility] Smoking Status: Unknown if Ever Smoked Frequency of Alcohol Use: None Hx Recreational Drug Use: No Drugs: None Hx Prescription Drug Abuse: No - Advance Directive Resuscitation Status: Full Code Surrogate healthcare decision maker:: His son Family History Family History: None Parental Family History Reviewed: Yes - uncertain cause of father's . Mother of cancer Children Family History Reviewed: Yes - Son is healthy. Sibling(s) Family History Reviewed.: NA Medication/Allergy Home Medications: Hydralazine HCl [Apresoline 10 mg Tablet] 10 mg PO Q8 #90 tablet 04/03/15 Ipratropium/Albuterol Sulfate [Combivent Inhaler] 14.7 gm IH Q4H PRN #1 aer.w.adap 04/03/15 Albuterol Sulfate [Albuterol Sulfate 2.5mg/3 mL] 1 vial NEB Q4HP PRN 11/26/16 Benzonatate [Tessalon Perles 100 mg Capsule] 100 mg PO Q8HP PRN 11/26/16 Bicalutamide [Casodex 50 mg Tablet] 50 mg PO DAILY 11/26/16 Calcium Carbonate/Vitamin D3 [Calcium 500-Vit D3 400 Tablet] 2 tab PO Q8 Doxazosin Mesylate [Cardura 2 mg Tablet] 2 mg PO QHS 11/26/16 Ferrous Sulfate [Feosol 325 mg Tablet] 325 mg PO BID 11/26/16 Finasteride [Proscar 5 mg Tablet] 5 mg PO DAILY 11/26/16 Furosemide [Lasix] 20 mg PO MOWEFR@1000 11/26/16 Hydralazine HCl [Apresoline 10 mg Tablet] 10 mg PO Q8 11/26/16 Ipratropium/Albuterol Sulfate [Combivent Respimat 4 gm Mdi] 2 puff IH Q4HP PRN 11/26/16 Levothyroxine Sodium [Synthroid 0.075 mg Tablet] 0.075 mg PO QAM 11/26/16 Loperamide HCl [Imodium A-D] 2 mg PO Q4HP PRN 11/26/16 Melatonin [Melatin] 3 mg PO HSP PRN 11/26/16 Metoprolol Succinate [Toprol Xl 25 mg Tab.sr] 25 mg PO Q12 11/26/16 Mirtazapine [Remeron 15 mg Tablet] 7.5 mg PO QHS 11/26/16 Montelukast Sodium [Singulair 10 mg Tablet] 10 mg PO QHS 11/26/16 Prednisone [Deltasone 5 mg Tablet] 5 mg PO BID 11/26/16 Allergies/Adverse Reactions: Influenza Virus Vaccines Allergy (Unknown, Verified 11/28/16 17:57) Physical Exam Vital Signs: Temp Pulse Resp BP Pulse Ox 97.2 F 86 22 H 101/60 100 11/25/16 18:45 11/25/16 18:45 11/26/16 00:30 11/26/16 00:30 11/26/16 00:30 Results Impressions: Chest X-Ray 11/25/16 19:00 IMPRESSION: Small right pleural effusion right lower lobe pneumonia. Widespread bony metastatic disease. Assessment & Plan - Diagnosis (1) RLL pneumonia Qualifiers: Pneumonia type: due to unspecified organism Qualified Code(s): J18.1 - Lobar pneumonia, unspecified organism Is this a current diagnosis for this admission?: YesPlan: Patient will be admitted under pneumonia protocol. Incentive spirometry twice a day. PRN DuoNeb's. Antibiotics will consist of Rocephin and intravenous Zithromax; pharmacy to assist with dosing.. Patient is a full code. Knee high SCDs for DVT prophylaxis; with underlying thrombocytopenia, will forego Lovenox or heparin. Impression and plans were discussed with patient, who concurs. Time spent in evaluation and management of patient: 65 minutes. (2) Hypotension Qualifiers: Hypotension type: unspecified hypotension type Qualified Code(s): I95.9 - Hypotension, unspecified Is this a current diagnosis for this admission?: YesPlan: Likely due to combination of pneumonia and dehydration. Has responded nicely to IV fluids. Judicious use of same due to chronic systolic heart failure. (3) Elevated troponin Is this a current diagnosis for this admission?: YesPlan: No clinical evidence of acute coronary syndrome, but will trend troponins. (4) Thrombocytopenia Is this a current diagnosis for this admission?: YesPlan: Likely due to underlying pneumonia, along with possibly chronic disease. Follow -up CBC with differential. Consider Arixtra. (5) Decreased appetite Is this a current diagnosis for this admission?: YesPlan: Plan PEG tube insertion. GI consult. Dr. Lucero aware patient to be admitted. (6) ARF (acute renal failure) Qualifiers: Acute renal failure type: unspecified Qualified Code(s): N17.9 - Acute kidney failure, unspecified Is this a current diagnosis for this admission?: YesPlan: Likely due to dehydration from poor by mouth intake. IV fluid. Follow-up chemistry. Renal ultrasound if labs do not improve with hydration. (7) Elevated LFTs Is this a current diagnosis for this admission?: YesPlan: Follow-up chemistry. Possibly due to underlying pneumonia. (8) Hyperkalemia Is this a current diagnosis for this admission?: YesPlan: Likely due to combination of renal failure and dehydration. IV fluid. Follow- up chemistry. (9) Dehydration Is this a current diagnosis for this admission?: YesPlan: IV fluids. (10) Hypothyroid Qualifiers: Hypothyroidism type: unspecified Qualified Code(s): E03.9 - Hypothyroidism, unspecified Is this a current diagnosis for this admission?: YesPlan: TSH pending. Resume home medications as appropriate once these have been determined and reviewed. - Inpatient Certification Based on my medical assessment, after consideration of the patient's comorbidities, presenting symptoms, or acuity I expect that the services needed warrant INPATIENT care.: Yes I certify that my determination is in accordance with my understanding of Medicare's requirements for reasonable and necessary INPATIENT services [42 CFR 412.3e].: Yes Medical Necessity: Significant Comorbidiites Make Outpatient Treatment Too Risky , Need Close Monitoring Due to Risk of Patient Decompensation, Need For IV Fluids, Need For Continuous Telemetry Monitoring, Need for Nebulizer Therapy and Monitoring of Response, Need for IV Antibiotics, Risk of Diagnosis Which Will Require Inpatient Eval/Care/Monitoring Post Hospital Care: D/C or Transfer Summary
[2016-11-26] MEDS ORDERED: IPRATROPIUM/ALBUTEROL 0.5-2.5 MG/3 ML AMPUL NEB PRN (02:04)
[2016-11-26] MEDS ORDERED: PHARMACY COMMUNICATION ORDER MC SCH (02:15)
[2016-11-26] MEDS ORDERED: AZITHROMYCIN INJ 500 MG VIAL IV ONE (02:34)
[2016-11-26] MEDS ORDERED: CEFTRIAXONE 1 GM/D5W RTU 1 GM/50 ML RTUPB IV ONE (02:35)
[2016-11-26] MEDS ORDERED: AZITHROMYCIN 500 MG in DEXTROSE 5%-WATER 250 ML IV SCH (03:00)
[2016-11-26 03:48] LABS: AMORPHOUS SEDIMENT,URINE 2+ /HPF; APPEARANCE,URINE TURBID; BILIRUBIN,URINE NEGATIVE (NEGATIVE); GLUCOSE, URINE NEGATIVE (NEGATIVE); KETONES,URINE NEGATIVE (NEGATIVE); LEUKOCYTE ESTERASE,URINE LARGE (NEGATIVE); NITRITE,URINE NEGATIVE (NEGATIVE); PROTEIN,URINE 100 mg/dL (NEGATIVE); URINE SPECIFIC GRAVITY 1.013; UROBILINOGEN,URINE NEGATIVE mg/dL (<2.0)
[2016-11-26] MEDS ORDERED: NORMAL SALINE 1000 ML 500 ML IV ONE ×2 (04:12→21:25)
[2016-11-26] MEDS ORDERED: NORMAL SALINE 1000 ML 250 ML IV ONE (05:01)
[2016-11-26 07:33] LABS: ALANINE AMINOTRANSFERASE 87 U/L (21-72); ALBUMIN 2.2 g/dL (3.5-5.0); ALKALINE PHOSPHATASE 1193 U/L (38-126); ANION GAP 11 (5-19); ASPARTATE AMINO TRANSFERASE 321 U/L (17-59); BILIRUBIN,DIRECT 1.1 mg/dL (0.0-0.4); BILIRUBIN,TOTAL 1.4 mg/dL (0.2-1.3); BLOOD UREA NITROGEN 110 mg/dL (7-20); CARBON DIOXIDE 18 mmol/L (22-30); CHLORIDE 103 mmol/L (98-107); CREATININE RESULT 2.34 mg/dL (0.52-1.25); GLUCOSE 111 mg/dL (75-110); POTASSIUM 4.9 mmol/L (3.6-5.0); SODIUM 131.9 mmol/L (137-145); TOTAL PROTEIN 4.7 g/dL (6.3-8.2)
--- NOTE | 2016-11-26 07:38 | EKG REPORT ---
SEVERITY:- ABNORMAL ECG - SINUS RHYTHM NONSPECIFIC IVCD WITH LAD LEFT VENTRICULAR HYPERTROPHY ANTERIOR Q WAVES, POSSIBLY DUE TO LVH : Confirmed by: Shanice Gamez MD 26-Nov-2016 07:37:55
[2016-11-26 08:30] LABS: HEMOGLOBIN 8.5 g/dL (13.5-17.0); RED BLOOD COUNT 2.75 10^6/uL (4.35-5.55)
[2016-11-26] MEDS ORDERED: PIPERACILLIN/TAZOBACTAM 3.375 GM VIAL IV SCH (08:30)
[2016-11-26 08:36] LABS: HEMATOCRIT 25.5 % (37.9-51.0); MEAN CORPUSCULAR HEMOGLOBIN 30.7 pg (27.0-33.4); MEAN CORPUSCULAR HGB CONC 33.1 g/dL (32.0-36.0); MEAN CORPUSCULAR VOLUME 93 fl (80-97); RED CELL DISTRIBUTION WIDTH 20.4 % (11.5-14.0)
[2016-11-26 09:03] LABS: BAND NEUTROPHILS % (MANUAL) 8 % (3-5); BASOPHILS % (MANUAL) 0 % (0-2); EOSINOPHILS % (MANUAL) 2 % (0-6); LYMPHOCYTES % (MANUAL) 8 % (13-45); TOTAL CELLS COUNTED 100
[2016-11-26 09:05] LABS: OVALOCYTES SLIGHT; TOXIC GRANULATION SLIGHT
[2016-11-26 09:06] LABS: ANISOCYTOSIS 2+; NUCLEATED RED BLOOD CELLS 8 /100 WBC (0); POIKILOCYTOSIS 1+; POLYCHROMASIA SLIGHT; TEAR DROP CELLS SLIGHT
[2016-11-26 09:07] LABS: WHITE BLOOD COUNT 4.5 10^3/uL (4.0-10.5)
[2016-11-26 09:45] LABS: PROTHROMBIN TIME 17.3 SEC (11.4-15.4)
[2016-11-26] MEDS: PIPERACILLIN SODIUM/TAZOBACTAM 2.25 GM in NORMAL SALINE 50 ML IV SCH ×2 (11:07→17:33)
[2016-11-26] MEDS: DOCUSATE SODIUM 100 MG CAPSULE PO SCH (11:09)
[2016-11-26] MEDS: DEXTROSE 5%-WATER 250 ML with NOREPINEPHRINE BITARTRATE 4 MG IV PRN ×4 (13:28→19:40)
[2016-11-26] MEDS: DEXTROSE 5%-NORMAL SALINE 1,000 ML IV PRN ×2 (13:28→19:38)
[2016-11-26] MEDS ORDERED: MIDAZOLAM 2 MG/2 ML INJ ONE (18:00)
[2016-11-26] MEDS ORDERED: NALOXONE HCL INJ/PF 0.4 MG/1 ML SDV ONE (18:00)
[2016-11-26] MEDS ORDERED: FENTANYL CITRATE INJ/PF 100 MCG/2 ML AMPUL ONE (18:01)
[2016-11-26] MEDS ORDERED: GLUCAGON,HUMAN RECOMB 1 MG INJ ONE (18:01)
[2016-11-26] MEDS ORDERED: FLUMAZENIL INJ 0.5 MG/5 ML VIAL IV ONE (18:01)
[2016-11-26] MEDS ORDERED: EPINEPHRINE INJ 1 MG/10 ML DISP.SYRIN ONE (18:01)
--- NOTE | 2016-11-26 19:28 | PDOC CONSULTATION ---
Consultation Consult Date: 11/25/16 History of Present Illness Admission Date/PCP: 11/26/16 01:40 ISMA EVERETT History of Present Illness: This is a 86-year-old patient admitted with malnutrition, dehydration, renal failure, and a poor appetite. I saw the patient in the office about a week ago when he was referred for gastrostomy tube placement. Apparently he has not been eating or drinking well for a while. It was difficult to obtain any history from the patient at the moment. He said to have lost 40 pounds over the last year. On admission his platelet count was 68 with hemoglobin of 9.7. Creatinine was 2.5 with a BUN of 113. His LFTs were abnormal with an alkaline phosphatase of 1193, AST 321 ALT of 87. His alkaline phosphatase was only 152 one 10/10/2016. He has a history of metastatic prostate cancer. A CAT scan of the abdomen performed in July did not show significant liver disease except for dilated biliary tree. His TSH was also elevated at 13. His platelet count was normal at 201 on 10/26/2016 Past Medical History Cardiac Medical History: Reports: Congestive Heart Failure, Myocardial Infarction - many yrs ago, Hypertension - ? since 03/2015 Denies: Coronary Artery Disease, DVT, Hyperlipidema, Pulmonary Embolism - Systolic Pulmonary Medical History: Reports: Pneumonia Denies: Asthma, Bronchitis, Chronic Obstructive Pulmonary Disease (COPD) Neurological Medical History: Denies: Hemorrhagic CVA, Ischemic CVA, Seizures Endocrine Medical History: Reports: Hypothyroidism Denies: Diabetes Mellitus Type 1, Diabetes Mellitus Type 2, Hyperthyroidism Malignancy Medical History: Reports: Bone Cancer, Other - Prostate cancer metastatic to bone. GI Medical History: Reports: Other - Extremely poor appetite. Denies: Cirrhosis, Gastroesophageal Reflux Disease, Hepatitis, Peptic Ulcer Disease Musculoskeltal Medical History: Denies: Arthritis Skin Medical History: Reports: None Psychiatric Medical History: Denies: Alcohol Dependency, Depression, General Anxiety Disorder, Substance Abuse, Tobacco Dependency Hematology: Reports: Anemia Infectious Medical History: Denies: Hepatitis B, Hepatitis C Past Surgical History Past Surgical History: Reports: Orthopedic Surgery - R ARM, Vascular Surgery - 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 Social History Lives with: Custodial Smoking Status: Former Smoker Frequency of Alcohol Use: None Hx Recreational Drug Use: No Drugs: None Hx Prescription Drug Abuse: No - Advance Directive Resuscitation Status: Full Code Family History Family History: None Parental Family History Reviewed: No Children Family History Reviewed: NA Sibling(s) Family History Reviewed.: NA Medication/Allergy Home Medications: Hydralazine HCl [Apresoline 10 mg Tablet] 10 mg PO Q8 #90 tablet 04/03/15 Ipratropium/Albuterol Sulfate [Combivent Inhaler] 14.7 gm IH Q4H PRN #1 aer.w.adap 04/03/15 Albuterol Sulfate [Albuterol Sulfate 2.5mg/3 mL] 1 vial NEB Q4HP PRN 11/26/16 Benzonatate [Tessalon Perles 100 mg Capsule] 100 mg PO Q8HP PRN 11/26/16 Bicalutamide [Casodex 50 mg Tablet] 50 mg PO DAILY 11/26/16 Calcium Carbonate/Vitamin D3 [Calcium 500-Vit D3 400 Tablet] 2 tab PO Q8 Doxazosin Mesylate [Cardura 2 mg Tablet] 2 mg PO QHS 11/26/16 Ferrous Sulfate [Feosol 325 mg Tablet] 325 mg PO BID 11/26/16 Finasteride [Proscar 5 mg Tablet] 5 mg PO DAILY 11/26/16 Furosemide [Lasix] 20 mg PO MOWEFR@1000 11/26/16 Hydralazine HCl [Apresoline 10 mg Tablet] 10 mg PO Q8 11/26/16 Ipratropium/Albuterol Sulfate [Combivent Respimat 4 gm Mdi] 2 puff IH Q4HP PRN 11/26/16 Levothyroxine Sodium [Synthroid 0.075 mg Tablet] 0.075 mg PO QAM 11/26/16 Loperamide HCl [Imodium A-D] 2 mg PO Q4HP PRN 11/26/16 Melatonin [Melatin] 3 mg PO HSP PRN 11/26/16 Metoprolol Succinate [Toprol Xl 25 mg Tab.sr] 25 mg PO Q12 11/26/16 Mirtazapine [Remeron 15 mg Tablet] 7.5 mg PO QHS 11/26/16 Montelukast Sodium [Singulair 10 mg Tablet] 10 mg PO QHS 11/26/16 Prednisone [Deltasone 5 mg Tablet] 5 mg PO BID 11/26/16 Allergies/Adverse Reactions: flu vaccine Allergy (Uncoded 04/20/16 09:08) Review of Systems ROS unobtainable: Due to mental status Physical Exam Vital Signs: Temp Pulse Resp BP Pulse Ox 98 F 83 23 H 98/56 L 99 11/26/16 18:18 11/26/16 19:20 11/26/16 19:20 11/26/16 19:20 11/26/16 19:20 Intake & Output 11/25/16 11/26/16 11/27/16 06:59 06:59 06:59 Intake Total 1990 Output Total 245 Balance 1746 Weight 49.1 kg Exam: General: Patient is alert but difficult to communicate with HEENT: He is pale but not jaundiced. His oropharynx was very dry Respiratory: There is kyphosis. No respiratory distress. Chest wall palpitation was unremarkable. Breath sounds were normal Cardiovascular: Heart sounds 1 and 2 normal with no murmurs. Abdominal: Not distended. There is a firm, tender hepatomegaly mostly in the epigastrium extending 7-9 cm below the costal margin. No ascites demonstrated. Bowel sounds active. Rectal examination was deferred. Extremities: No edema Neurological: Not fully examined Results Laboratory Results: 11/26/16 08:20 11/26/16 07:05 11/26/16 11/26/16 11/26/16 07:05 07:05 08:20 WBC Cancelled 4.5 RBC Cancelled 2.75 L Hgb Cancelled 8.5 L Hct Cancelled 25.5 L MCV Cancelled 93 MCH Cancelled 30.7 MCHC Cancelled 33.1 RDW Cancelled 20.4 H Plt Count Cancelled 38 L Seg Neutrophils % Cancelled Not Reportable Lymphocytes % Cancelled Not Reportable Monocytes % Cancelled Not Reportable Eosinophils % Cancelled Not Reportable Basophils % Cancelled Not Reportable Absolute Neutrophils Cancelled Not Reportable Absolute Lymphocytes Cancelled Not Reportable Absolute Monocytes Cancelled Not Reportable Absolute Eosinophils Cancelled Not Reportable Absolute Basophils Cancelled Not Reportable Sodium 131.9 L Potassium 4.9 Chloride 103 Carbon Dioxide 18 L Anion Gap 11 BUN 110 H Creatinine 2.34 H Est GFR ( Amer) 32 L Est GFR (Non-Af Amer) 27 L Glucose 111 H Calcium 7.0 L* Total Bilirubin 1.4 H AST 321 H ALT 87 H Alkaline Phosphatase 1193 H Total Protein 4.7 L Albumin 2.2 L 11/26/16 07:05 Troponin I 0.076 Impressions: Chest X-Ray 11/25/16 19:00 IMPRESSION: Small right pleural effusion right lower lobe pneumonia. Widespread bony metastatic disease. Renal Ultrasound 11/26/16 00:00 IMPRESSION: Left-sided crossed fused renal ectopia. No suspicious interval change. Limitation. Assessment & Plan - Diagnosis (1) Protein-calorie malnutrition, mild Is this a current diagnosis for this admission?: YesPlan: Patient is significantly dehydrated and has not been eating or drinking well for many weeks. The need for PEG tube placement was explained to the patient's son who is in agreement. The risks and benefits were explained. He does have hepatomegaly which may make the procedure difficult or impossible endoscopically. (2) Hepatomegaly Is this a current diagnosis for this admission?: YesPlan: His LFTs has significantly increased over the last weeks and he has significant hepatomegaly. The last imaging of his abdomen in July of last year did not show significant liver disease. He has a history of metastatic prostate cancer but mostly to the bones. I suspect he has metastases to his liver. He should have an ultrasound while in the hospital (3) Dehydration Is this a current diagnosis for this admission?: Yes (4) Elevated LFTs Is this a current diagnosis for this admission?: Yes (5) Decreased appetite Is this a current diagnosis for this admission?: Yes (6) Prostate cancer Is this a current diagnosis for this admission?: Yes
--- NOTE | 2016-11-26 19:32 | Operative Report ---
Operative Report DATE OF SURGERY: 11/26/16 Operative Report: Pre-op diagnosis: Malnutrition and dehydration Post-op diagnosis: Mild diffuse gastritis. Hepatomegaly Surgery: Esophagogastroduodenoscopy with gastrostomy tube placement Medications: Versed 1mg Fentanyl 50mcg IV push Tissue removed: None Procedure: After informed consent obtained from patient, the throat was sprayed with Hurricane and conscious sedation was achieved. The upper endoscope was inserted into the esophagus under direct vision and advanced into the stomach. The duodenum was entered and examined to the second part. Patient had a markedly enlarged liver part in most of the epigastrium and this appeared to have pushed the stomach to the left side of the abdomen. I was able to find a spot in the left upper quadrant and in the proximal antrum. The site was cleaned with Betadine and draped. Xylocaine was then injected for local anesthesia. In the standard fashion a 20 Tamazight gastrostomy tube was then placed with no difficulty. The position of the inner bumper was confirmed at the second endoscopy. Patient tolerated procedure well. Findings Esophagus: Normal Antrum: Mild erythema with atrophy Body: Normal. Gastrostomy tube was placed in this area Fundus: Normal Duodenum first part: Normal Duodenum second part: Normal Plan: Start feeding in the morning OPERATION: .
[2016-11-26] MEDS ORDERED: ACETAMINOPHEN 650 MG SUPP.RECT PR PRN (21:25)
[2016-11-26 21:45] LABS: PATH REVIEW PATHOLOGIST REVIEWED
[2016-11-26] MEDS ORDERED: CEFTRIAXONE 1 GM/D5W RTU 1 GM/50 ML RTUPB IV SCH (22:00)
[2016-11-27] MEDS: PIPERACILLIN SODIUM/TAZOBACTAM 2.25 GM in NORMAL SALINE 50 ML IV SCH ×3 (01:18→17:47)
[2016-11-27] MEDS: DEXTROSE 5%-WATER 250 ML with NOREPINEPHRINE BITARTRATE 4 MG IV PRN ×8 (01:23→23:24)
[2016-11-27] MEDS: DEXTROSE 5%-NORMAL SALINE 1,000 ML IV PRN ×3 (03:50→14:06)
[2016-11-27 06:40] LABS: HEMATOCRIT 27.8 % (37.9-51.0); HEMOGLOBIN 9.1 g/dL (13.5-17.0); HGB HCT DIFFERENCE -0.5; MEAN CORPUSCULAR HEMOGLOBIN 30.9 pg (27.0-33.4); MEAN CORPUSCULAR HGB CONC 32.8 g/dL (32.0-36.0); MEAN CORPUSCULAR VOLUME 94 fl (80-97); RED BLOOD COUNT 2.95 10^6/uL (4.35-5.55); RED CELL DISTRIBUTION WIDTH 21.5 % (11.5-14.0)
[2016-11-27 06:55] LABS: ANION GAP 12 (5-19); BLOOD UREA NITROGEN 92 mg/dL (7-20); CARBON DIOXIDE 15 mmol/L (22-30); CHLORIDE 109 mmol/L (98-107); CREATININE RESULT 2.21 mg/dL (0.52-1.25); GLUCOSE 194 mg/dL (75-110); SODIUM 136.2 mmol/L (137-145)
[2016-11-27 07:13] LABS: WHITE BLOOD COUNT 8.4 10^3/uL (4.0-10.5)
[2016-11-27 07:41] LABS: CALCIUM 6.5 mg/dL (8.4-10.2)
--- NOTE | 2016-11-27 08:33 | PDOC PROGRESS REPORT ---
Subjective Progress Note for:: 11/27/16 Subjective:: Patient reports he is feeling better this morning. He is hard of hearing, difficult to understand speech, baseline according to the family. Family reports patient being more awake, getting more edema at this time. Calcium level remained low, albumin likewise. Gastroenterology service performed feeding tube placement yesterday. Physical Exam Vital Signs: Temp Pulse Resp BP Pulse Ox 98 F 103 H 18 103/52 L 97 11/27/16 08:00 11/27/16 08:00 11/27/16 08:00 11/27/16 08:00 11/27/16 08:00 Intake & Output 11/26/16 11/27/16 11/28/16 06:59 06:59 06:59 Intake Total 4032 Output Total 505 Balance 3527 Weight 49.1 kg 56.8 kg General appearance: PRESENT: no acute distress, cooperative Head exam: PRESENT: normocephalic Eye exam: PRESENT: EOMI Mouth exam: PRESENT: dry mucosa, neck supple Neck exam: ABSENT: JVD Respiratory exam: PRESENT: rhonchi - few. ABSENT: wheezes Cardiovascular exam: PRESENT: RRR. ABSENT: gallop GI/Abdominal exam: PRESENT: hypoactive bowel sounds, soft, other - Slight tympany to percussion. ABSENT: tenderness Extremities exam: ABSENT: pedal edema Neurological exam: PRESENT: alert, awake Skin exam: PRESENT: dry, warm. ABSENT: cyanosis Results Laboratory Results: 11/27/16 06:30 11/27/16 06:30 11/26/16 11/27/16 11/27/16 08:20 06:30 06:30 WBC 4.5 8.4 RBC 2.75 L 2.95 L Hgb 8.5 L 9.1 L Hct 25.5 L 27.8 L MCV 93 94 MCH 30.7 30.9 MCHC 33.1 32.8 RDW 20.4 H 21.5 H Plt Count 38 L 37 L Seg Neutrophils % Not Reportable Lymphocytes % Not Reportable Monocytes % Not Reportable Eosinophils % Not Reportable Basophils % Not Reportable Absolute Neutrophils Not Reportable Absolute Lymphocytes Not Reportable Absolute Monocytes Not Reportable Absolute Eosinophils Not Reportable Absolute Basophils Not Reportable Sodium 136.2 L Potassium 4.0 Chloride 109 H Carbon Dioxide 15 L Anion Gap 12 BUN 92 H Creatinine 2.21 H Est GFR ( Amer) 34 L Est GFR (Non-Af Amer) 29 L Glucose 194 H Calcium 6.5 L* Albumin 11/27/16 06:30 WBC RBC Hgb Hct MCV MCH MCHC RDW Plt Count Seg Neutrophils % Lymphocytes % Monocytes % Eosinophils % Basophils % Absolute Neutrophils Absolute Lymphocytes Absolute Monocytes Absolute Eosinophils Absolute Basophils Sodium Potassium Chloride Carbon Dioxide Anion Gap BUN Creatinine Est GFR ( Amer) Est GFR (Non-Af Amer) Glucose Calcium Albumin 1.8 L 11/26/16 07:05 Troponin I 0.076 Impressions: Chest X-Ray 11/25/16 19:00 IMPRESSION: Small right pleural effusion right lower lobe pneumonia. Widespread bony metastatic disease. Renal Ultrasound 11/26/16 00:00 IMPRESSION: Left-sided crossed fused renal ectopia. No suspicious interval change. Limitation. Abdomen Ultrasound 11/27/16 00:00 IMPRESSION: 1. Heterogeneous echotexture throughout the liver. In this clinical setting this could represent hepatitis. Metastatic disease cannot be excluded. Review of the patient's prior CT from July demonstrates relatively normal attenuation. Repeat CT abdomen pelvis may be beneficial. 2. Small amount of ascites. Assessment & Plan - Diagnosis (1) Septic shock Is this a current diagnosis for this admission?: Yes (2) RLL pneumonia Qualifiers: Pneumonia type: due to unspecified organism Qualified Code(s): J18.1 - Lobar pneumonia, unspecified organism Is this a current diagnosis for this admission?: Yes (3) UTI (urinary tract infection) Qualifiers: Urinary tract infection type: site unspecified Hematuria presence: without hematuria Qualified Code(s): N39.0 - Urinary tract infection, site not specified Is this a current diagnosis for this admission?: Yes (4) Acute renal failure superimposed on stage 3 chronic kidney disease Is this a current diagnosis for this admission?: Yes (5) Elevated LFTs Is this a current diagnosis for this admission?: Yes (6) Hyperkalemia Is this a current diagnosis for this admission?: Yes (7) Hyponatremia Is this a current diagnosis for this admission?: Yes (8) Coronary artery disease Qualifiers: Coronary Disease-Associated Artery/Lesion type: [place] artery [place] vs. transplanted heart: [place] heart Associated angina: without angina Qualified Code(s): I25.10 - Atherosclerotic heart disease of [place] coronary artery without angina pectoris Is this a current diagnosis for this admission?: Yes (9) Anemia Qualifiers: Anemia type: unspecified type Qualified Code(s): D64.9 - Anemia, unspecified Is this a current diagnosis for this admission?: Yes (10) Hypothyroid Qualifiers: Hypothyroidism type: unspecified Qualified Code(s): E03.9 - Hypothyroidism, unspecified Is this a current diagnosis for this admission?: Yes (11) Prostate cancer Is this a current diagnosis for this admission?: Yes (12) Systolic CHF, chronic Is this a current diagnosis for this admission?: Yes (13) COPD (chronic obstructive pulmonary disease) Qualifiers: COPD type: unspecified COPD Qualified Code(s): J44.9 - Chronic obstructive pulmonary disease, unspecified Is this a current diagnosis for this admission?: Yes - Time Time Spent with patient: 25-34 minutes - Plan Summary Plan Summary: Dr. Lucero reports feeding tube can be used the following day after placing it. We will begin tube feedings, decrease intravenous fluid, wean levo fed, recheck electrolytes, monitor creatinine. Continue supportive care. Continue antibiotics and follow cultures. Check free T4.
[2016-11-27] MEDS: DOCUSATE SODIUM 100 MG CAPSULE PO SCH (11:10)
[2016-11-27] MEDS: NYSTATIN 500000 UNIT/5 ML UDCUP PO SCH (22:34)
[2016-11-28] MEDS: PIPERACILLIN SODIUM/TAZOBACTAM 2.25 GM in NORMAL SALINE 50 ML IV SCH ×3 (01:00→17:06)
[2016-11-28] MEDS: DEXTROSE 5%-WATER 250 ML with NOREPINEPHRINE BITARTRATE 4 MG IV PRN ×8 (05:19→23:08)
[2016-11-28] MEDS: DEXTROSE 5%-NORMAL SALINE 1,000 ML IV PRN ×2 (05:20→23:09)
[2016-11-28 06:51] LABS: HEMATOCRIT 29.8 % (37.9-51.0); HEMOGLOBIN 9.7 g/dL (13.5-17.0); HGB HCT DIFFERENCE -0.7; MEAN CORPUSCULAR HEMOGLOBIN 30.9 pg (27.0-33.4); MEAN CORPUSCULAR HGB CONC 32.5 g/dL (32.0-36.0); MEAN CORPUSCULAR VOLUME 95 fl (80-97); RED BLOOD COUNT 3.14 10^6/uL (4.35-5.55); RED CELL DISTRIBUTION WIDTH 21.6 % (11.5-14.0); WHITE BLOOD COUNT 8.7 10^3/uL (4.0-10.5)
[2016-11-28 07:00] LABS: ANION GAP 12 (5-19); BLOOD UREA NITROGEN 83 mg/dL (7-20); CARBON DIOXIDE 15 mmol/L (22-30); CHLORIDE 109 mmol/L (98-107); CREATININE RESULT 2.15 mg/dL (0.52-1.25); GLUCOSE 131 mg/dL (75-110); MAGNESIUM 2.8 mg/dL (1.6-2.3); PHOSPHORUS 1.8 mg/dL (2.5-4.5); POTASSIUM 3.6 mmol/L (3.6-5.0); SODIUM 136.2 mmol/L (137-145)
--- NOTE | 2016-11-28 08:17 | PDOC PROGRESS REPORT ---
Subjective Progress Note for:: 11/28/16 Subjective:: Patient having third space loss, now having edema. Reported fluid leaking out from the feeding tube site. Patient remained on Levophed. No reported temperature spikes, respiratory distress, nausea or vomiting. Tube feedings has been started. Patient however has thick oral secretions reported. Physical Exam Vital Signs: Temp Pulse Resp BP Pulse Ox 97.3 F 107 H 15 94/53 L 98 11/27/16 23:51 11/27/16 19:00 11/28/16 06:31 11/28/16 06:30 11/28/16 06:31 Intake & Output 11/27/16 11/28/16 11/29/16 06:59 06:59 06:59 Intake Total 4032 4005 Output Total 505 485 Balance 3527 3520 Weight 56.8 kg General appearance: PRESENT: no acute distress, thin, other - Cachectic Head exam: PRESENT: normocephalic Eye exam: PRESENT: EOMI Mouth exam: PRESENT: dry mucosa, neck supple Neck exam: ABSENT: JVD Respiratory exam: PRESENT: decreased breath sounds. ABSENT: wheezes Cardiovascular exam: PRESENT: RRR. ABSENT: gallop GI/Abdominal exam: PRESENT: soft, tenderness - Mild diffusely, other - Dullness to percussion. ABSENT: distended Extremities exam: PRESENT: pedal edema, other - Pretibial edema Neurological exam: PRESENT: alert, awake Skin exam: PRESENT: dry, warm. ABSENT: cyanosis Results Laboratory Results: 11/28/16 06:22 11/28/16 06:22 11/27/16 11/28/16 11/28/16 06:30 06:22 06:22 WBC 8.4 8.7 RBC 2.95 L 3.14 L Hgb 9.1 L 9.7 L Hct 27.8 L 29.8 L MCV 94 95 MCH 30.9 30.9 MCHC 32.8 32.5 RDW 21.5 H 21.6 H Plt Count 37 L 33 L Sodium 136.2 L Potassium 3.6 Chloride 109 H Carbon Dioxide 15 L Anion Gap 12 BUN 83 H Creatinine 2.15 H Est GFR ( Amer) 36 L Est GFR (Non-Af Amer) 29 L Glucose 131 H Calcium 7.0 L* Phosphorus 1.8 L Magnesium 2.8 H Free T4 11/28/16 06:22 WBC RBC Hgb Hct MCV MCH MCHC RDW Plt Count Sodium Potassium Chloride Carbon Dioxide Anion Gap BUN Creatinine Est GFR ( Amer) Est GFR (Non-Af Amer) Glucose Calcium Phosphorus Magnesium Free T4 0.70 L 11/26/16 07:05 Troponin I 0.076 Impressions: Chest X-Ray 11/25/16 19:00 IMPRESSION: Small right pleural effusion right lower lobe pneumonia. Widespread bony metastatic disease. Renal Ultrasound 11/26/16 00:00 IMPRESSION: Left-sided crossed fused renal ectopia. No suspicious interval change. Limitation. Abdomen Ultrasound 11/27/16 00:00 IMPRESSION: 1. Heterogeneous echotexture throughout the liver. In this clinical setting this could represent hepatitis. Metastatic disease cannot be excluded. Review of the patient's prior CT from July demonstrates relatively normal attenuation. Repeat CT abdomen pelvis may be beneficial. 2. Small amount of ascites. Assessment & Plan - Diagnosis (1) Septic shock Is this a current diagnosis for this admission?: Yes (2) RLL pneumonia Qualifiers: Pneumonia type: due to unspecified organism Qualified Code(s): J18.1 - Lobar pneumonia, unspecified organism Is this a current diagnosis for this admission?: Yes (3) UTI (urinary tract infection) Qualifiers: Urinary tract infection type: site unspecified Hematuria presence: without hematuria Qualified Code(s): N39.0 - Urinary tract infection, site not specified Is this a current diagnosis for this admission?: Yes (4) Acute renal failure superimposed on stage 3 chronic kidney disease Is this a current diagnosis for this admission?: Yes (5) Elevated LFTs Is this a current diagnosis for this admission?: Yes (6) Hyperkalemia Is this a current diagnosis for this admission?: Yes (7) Hyponatremia Is this a current diagnosis for this admission?: Yes (8) Coronary artery disease Qualifiers: Coronary Disease-Associated Artery/Lesion type: [place] artery [place] vs. transplanted heart: [place] heart Associated angina: without angina Qualified Code(s): I25.10 - Atherosclerotic heart disease of [place] coronary artery without angina pectoris Is this a current diagnosis for this admission?: Yes (9) Anemia Qualifiers: Anemia type: unspecified type Qualified Code(s): D64.9 - Anemia, unspecified Is this a current diagnosis for this admission?: Yes (10) Hypothyroid Qualifiers: Hypothyroidism type: unspecified Qualified Code(s): E03.9 - Hypothyroidism, unspecified Is this a current diagnosis for this admission?: Yes (11) Prostate cancer Is this a current diagnosis for this admission?: Yes (12) Systolic CHF, chronic Is this a current diagnosis for this admission?: Yes (13) COPD (chronic obstructive pulmonary disease) Qualifiers: COPD type: unspecified COPD Qualified Code(s): J44.9 - Chronic obstructive pulmonary disease, unspecified Is this a current diagnosis for this admission?: Yes - Time Time Spent with patient: 25-34 minutes - Plan Summary Plan Summary: Continue intravenous fluids, continue IV antibiotics, follow cultures, monitor electrolytes and creatinine. Episodes of hypotension, we will resume her prednisone, give intravenous hydrocortisone for 3 doses, resume Synthroid but increase the dose. Recheck liver function test in a.m. Check chest x-ray, continue supportive care. Very poor prognosis.
[2016-11-28] MEDS: DOCUSATE SODIUM 100 MG CAPSULE PO SCH (09:36)
[2016-11-28] MEDS: NYSTATIN 500000 UNIT/5 ML UDCUP PO SCH ×4 (10:37→22:47)
[2016-11-28] MEDS: HYDROCORTISONE SOD SUCCINATE INJ/PF 100 MG/2 ML SDV IV SCH ×2 (10:37→17:06)
[2016-11-28] MEDS: LEVOTHYROXINE SODIUM 0.1 MG TABLET PO SCH (10:37)
[2016-11-28] MEDS: PREDNISONE 5 MG TABLET PO SCH ×2 (10:37→18:26)
[2016-11-28] MEDS ORDERED: PHENYLEPHRINE HCL INJ/PF 10 MG/1 ML SDV ONE (18:11)
[2016-11-28] MEDS: DEXTROSE 5%-WATER 250 ML with PHENYLEPHRINE HCL 40 MG IV PRN ×2 (18:17)
[2016-11-28] MEDS ORDERED: FUROSEMIDE INJ/PF 40 MG/4 ML SDV ONE (18:26)
[2016-11-28] MEDS ORDERED: FUROSEMIDE INJ/PF 40 MG/4 ML SDV IV ONE (19:30)
--- NOTE | 2016-11-28 21:13 | Progress Note ---
Provider Note Provider Note: 11/28/2016: Contacted by patient's intensive care unit nurse that patient desired change in his resuscitation status. Went to the patient's bedside. Remains frail and fatigued, but he is oriented to the fact that he is in the intensive care unit at [facility] and that it is 2017. He desires resuscitation status change to DO NOT INTUBATE. Implications of this status discussed in layperson's terms with patient who agrees. Stepdaughter/daughter (??) is at bedside, along with patient's intensive care unit nurse Diana. At 8:35 PM, lengthy telephone conversation with his son Hugo, who reportedly is in [place], [place], and who is the surrogate health care decision maker. With our telephone conversation on speaker phone, I did discuss with patient once again his change in resuscitation status with Hugo listening in. Implications discussed in layperson's terms also with Hugo, who works in the medical field and is quite familiar with various resuscitation protocols. Will honor patient's wishes. Hugo agrees.
[2016-11-29] MEDS: HYDROCORTISONE SOD SUCCINATE INJ/PF 100 MG/2 ML SDV IV SCH ×3 (04:37→22:16)
[2016-11-29] MEDS: PIPERACILLIN SODIUM/TAZOBACTAM 2.25 GM in NORMAL SALINE 50 ML IV SCH ×3 (04:37→17:28)
[2016-11-29] MEDS: DEXTROSE 5%-WATER 250 ML with NOREPINEPHRINE BITARTRATE 4 MG IV PRN ×4 (05:29→17:28)
[2016-11-29 05:57] LABS: ALANINE AMINOTRANSFERASE 80 U/L (21-72); ALBUMIN 1.9 g/dL (3.5-5.0); ALKALINE PHOSPHATASE 1218 U/L (38-126); ANION GAP 15 (5-19); ASPARTATE AMINO TRANSFERASE 280 U/L (17-59); BILIRUBIN,DIRECT 1.8 mg/dL (0.0-0.4); BLOOD UREA NITROGEN 84 mg/dL (7-20); CARBON DIOXIDE 13 mmol/L (22-30); CHLORIDE 108 mmol/L (98-107); GLUCOSE 120 mg/dL (75-110); SODIUM 135.7 mmol/L (137-145); TOTAL PROTEIN 4.1 g/dL (6.3-8.2)
[2016-11-29 06:08] LABS: CALCIUM 6.9 mg/dL (8.4-10.2)
[2016-11-29] MEDS ORDERED: LEVOTHYROXINE SODIUM 0.075 MG TABLET PO SCH (08:00)
--- NOTE | 2016-11-29 08:18 | PDOC PROGRESS REPORT ---
Subjective Progress Note for:: 11/29/16 Subjective:: The patient's CODE STATUS was changed to DO NOT INTUBATE. Reportedly patient having discomfort in the abdomen. Blood pressure improved, but on vasopressors. Respiratory discomfort improve as well. Oxygen saturation improved. No temperature spikes, nausea or vomiting, diarrhea. Physical Exam Vital Signs: Temp Pulse Resp BP Pulse Ox 97.8 F 119 H 27 H 70/43 L 99 11/29/16 00:00 11/28/16 19:00 11/29/16 06:05 11/29/16 06:05 11/29/16 06:05 Intake & Output 11/28/16 11/29/16 11/30/16 06:59 06:59 06:59 Intake Total 4005 2345 Output Total 485 410 Balance 3520 1935 General appearance: PRESENT: mild distress, thin, other - Cachectic Head exam: PRESENT: normocephalic Eye exam: PRESENT: conjunctiva pale Mouth exam: PRESENT: moist, neck supple Neck exam: ABSENT: JVD Respiratory exam: PRESENT: crackles - Posteriorly. ABSENT: wheezes Cardiovascular exam: PRESENT: RRR. ABSENT: gallop GI/Abdominal exam: PRESENT: hypoactive bowel sounds, soft. ABSENT: distended Extremities exam: PRESENT: other - Positive edema Psychiatric exam: ABSENT: agitated Focused psych exam: ABSENT: restlessness Skin exam: PRESENT: dry, warm. ABSENT: cyanosis Results Laboratory Results: 11/28/16 06:22 11/29/16 05:30 11/28/16 11/29/16 06:44 05:30 Sodium 135.7 L Potassium 4.0 Chloride 108 H Carbon Dioxide 13 L Anion Gap 15 BUN 84 H Creatinine 2.20 H Est GFR ( Amer) 35 L Est GFR (Non-Af Amer) 29 L Glucose 120 H Calcium 6.9 L* Total Bilirubin 2.0 H AST 280 H ALT 80 H Alkaline Phosphatase 1218 H Total Protein 4.1 L Albumin 1.8 L 1.9 L 11/26/16 07:05 Troponin I 0.076 Impressions: Renal Ultrasound 11/26/16 00:00 IMPRESSION: Left-sided crossed fused renal ectopia. No suspicious interval change. Limitation. Abdomen Ultrasound 11/27/16 00:00 IMPRESSION: 1. Heterogeneous echotexture throughout the liver. In this clinical setting this could represent hepatitis. Metastatic disease cannot be excluded. Review of the patient's prior CT from July demonstrates relatively normal attenuation. Repeat CT abdomen pelvis may be beneficial. 2. Small amount of ascites. Chest X-Ray 11/28/16 00:00 IMPRESSION: No improvement in the appearance of the right base. New small left effusion and left basilar opacity. Assessment & Plan - Diagnosis (1) Septic shock Is this a current diagnosis for this admission?: Yes (2) RLL pneumonia Qualifiers: Pneumonia type: due to unspecified organism Qualified Code(s): J18.1 - Lobar pneumonia, unspecified organism Is this a current diagnosis for this admission?: Yes (3) UTI (urinary tract infection) Qualifiers: Urinary tract infection type: site unspecified Hematuria presence: without hematuria Qualified Code(s): N39.0 - Urinary tract infection, site not specified Is this a current diagnosis for this admission?: Yes (4) Acute renal failure superimposed on stage 3 chronic kidney disease Is this a current diagnosis for this admission?: Yes (5) Elevated LFTs Is this a current diagnosis for this admission?: Yes (6) Hyperkalemia Is this a current diagnosis for this admission?: Yes (7) Hyponatremia Is this a current diagnosis for this admission?: Yes (8) Coronary artery disease Qualifiers: Coronary Disease-Associated Artery/Lesion type: [place] artery [place] vs. transplanted heart: [place] heart Associated angina: without angina Qualified Code(s): I25.10 - Atherosclerotic heart disease of [place] coronary artery without angina pectoris Is this a current diagnosis for this admission?: Yes (9) Anemia Qualifiers: Anemia type: unspecified type Qualified Code(s): D64.9 - Anemia, unspecified Is this a current diagnosis for this admission?: Yes (10) Hypothyroid Qualifiers: Hypothyroidism type: unspecified Qualified Code(s): E03.9 - Hypothyroidism, unspecified Is this a current diagnosis for this admission?: Yes (11) Prostate cancer Is this a current diagnosis for this admission?: Yes (12) Systolic CHF, chronic Is this a current diagnosis for this admission?: Yes (13) COPD (chronic obstructive pulmonary disease) Qualifiers: COPD type: unspecified COPD Qualified Code(s): J44.9 - Chronic obstructive pulmonary disease, unspecified Is this a current diagnosis for this admission?: Yes - Time Time Spent with patient: 25-34 minutes - Plan Summary Plan Summary: We will hold the patient's tube feedings. We will begin morphine as needed for pain. I will begin the patient on scheduled stress doses of steroids hopefully the blood pressure improves. Continue antibiotics. Awaiting family decision regarding comfort measures.
[2016-11-29] MEDS: LEVOTHYROXINE SODIUM 0.1 MG TABLET PO SCH (09:03)
[2016-11-29] MEDS: MORPHINE SULFATE 10 MG/ML INJ IV PRN ×2 (09:03→22:16)
[2016-11-29] MEDS: NYSTATIN 500000 UNIT/5 ML UDCUP PO SCH ×4 (09:03→22:16)
[2016-11-29] MEDS: DOCUSATE SODIUM 100 MG CAPSULE PO SCH (09:04)
[2016-11-29] MEDS: DEXTROSE 5%-WATER 250 ML with PHENYLEPHRINE HCL 40 MG IV PRN ×2 (17:27)
[2016-11-30] MEDS: DEXTROSE 5%-WATER 250 ML with NOREPINEPHRINE BITARTRATE 4 MG IV PRN ×8 (00:03→18:47)
[2016-11-30] MEDS: PIPERACILLIN SODIUM/TAZOBACTAM 2.25 GM in NORMAL SALINE 50 ML IV SCH ×3 (03:24→17:16)
[2016-11-30] MEDS: DEXTROSE 5%-WATER 250 ML with PHENYLEPHRINE HCL 40 MG IV PRN ×6 (03:24→17:57)
[2016-11-30] MEDS: HYDROCORTISONE SOD SUCCINATE INJ/PF 100 MG/2 ML SDV IV SCH ×3 (05:29→21:24)
[2016-11-30 05:59] LABS: HEMATOCRIT 31.9 % (37.9-51.0); HGB HCT DIFFERENCE -1.9; MEAN CORPUSCULAR HEMOGLOBIN 30.3 pg (27.0-33.4); MEAN CORPUSCULAR HGB CONC 31.5 g/dL (32.0-36.0); MEAN CORPUSCULAR VOLUME 96 fl (80-97); RED BLOOD COUNT 3.31 10^6/uL (4.35-5.55); RED CELL DISTRIBUTION WIDTH 22.5 % (11.5-14.0)
[2016-11-30 06:13] LABS: ANION GAP 16 (5-19); BLOOD UREA NITROGEN 88 mg/dL (7-20); CALCIUM 7.2 mg/dL (8.4-10.2); CARBON DIOXIDE 11 mmol/L (22-30); CHLORIDE 105 mmol/L (98-107); CREATININE RESULT 2.54 mg/dL (0.52-1.25); GLUCOSE 122 mg/dL (75-110); MAGNESIUM 2.9 mg/dL (1.6-2.3); SODIUM 131.5 mmol/L (137-145)
[2016-11-30 06:34] LABS: WHITE BLOOD COUNT 9.7 10^3/uL (4.0-10.5)
[2016-11-30] MEDS: DEXTROSE 5%-NORMAL SALINE 1,000 ML IV PRN (08:52)
--- NOTE | 2016-11-30 08:56 | PDOC PROGRESS REPORT ---
Subjective Progress Note for:: 11/30/16 Subjective:: Patient reports no respiratory distress, temperature spikes, nor any pain at the moment. He still complains of some shortness of breath. No nausea or vomiting. No chills or fever. No reported diarrhea. Remain on Ankush-Synephrine , and Levothroid. IV fluids minimized due to third space loss. On tube feedings. Physical Exam Vital Signs: Temp Pulse Resp BP Pulse Ox 96.3 F L 93 14 97/48 L 96 11/30/16 04:00 11/30/16 07:00 11/30/16 06:31 11/30/16 06:31 11/30/16 06:31 Intake & Output 11/29/16 11/30/16 12/01/16 06:59 06:59 06:59 Intake Total 2345 2318 Output Total 410 167 Balance 1935 2151 General appearance: PRESENT: mild distress, thin - Cachectic Head exam: PRESENT: normocephalic Eye exam: PRESENT: conjunctiva pale, EOMI Mouth exam: PRESENT: dry mucosa Teeth exam: PRESENT: poor dentation Neck exam: ABSENT: JVD Respiratory exam: PRESENT: clear to auscultation eddie - Anteriorly, crackles - Lower lung arguello POSTERIORLY Cardiovascular exam: PRESENT: RRR. ABSENT: gallop GI/Abdominal exam: PRESENT: hypoactive bowel sounds, soft. ABSENT: distended Extremities exam: PRESENT: other - Positive edema Neurological exam: PRESENT: alert, awake, other - Appropriately responds to questions Psychiatric exam: ABSENT: agitated Focused psych exam: ABSENT: restlessness Skin exam: PRESENT: dry, warm. ABSENT: cyanosis Results Laboratory Results: 11/30/16 05:35 11/30/16 05:35 11/30/16 11/30/16 05:35 05:35 WBC 9.7 RBC 3.31 L Hgb 10.0 L Hct 31.9 L MCV 96 MCH 30.3 MCHC 31.5 L RDW 22.5 H Plt Count 17 L* Sodium 131.5 L Potassium 5.0 Chloride 105 Carbon Dioxide 11 L Anion Gap 16 BUN 88 H Creatinine 2.54 H Est GFR ( Amer) 29 L Est GFR (Non-Af Amer) 24 L Glucose 122 H Calcium 7.2 L Magnesium 2.9 H 11/26/16 07:05 Troponin I 0.076 Impressions: Renal Ultrasound 11/26/16 00:00 IMPRESSION: Left-sided crossed fused renal ectopia. No suspicious interval change. Limitation. Abdomen Ultrasound 11/27/16 00:00 IMPRESSION: 1. Heterogeneous echotexture throughout the liver. In this clinical setting this could represent hepatitis. Metastatic disease cannot be excluded. Review of the patient's prior CT from July demonstrates relatively normal attenuation. Repeat CT abdomen pelvis may be beneficial. 2. Small amount of ascites. Chest X-Ray 11/28/16 00:00 IMPRESSION: No improvement in the appearance of the right base. New small left effusion and left basilar opacity. Assessment & Plan - Diagnosis (1) Septic shock Is this a current diagnosis for this admission?: Yes (2) RLL pneumonia Qualifiers: Pneumonia type: due to unspecified organism Qualified Code(s): J18.1 - Lobar pneumonia, unspecified organism Is this a current diagnosis for this admission?: Yes (3) UTI (urinary tract infection) Qualifiers: Urinary tract infection type: site unspecified Hematuria presence: without hematuria Qualified Code(s): N39.0 - Urinary tract infection, site not specified Is this a current diagnosis for this admission?: Yes (4) Acute renal failure superimposed on stage 3 chronic kidney disease Is this a current diagnosis for this admission?: Yes (5) Elevated LFTs Is this a current diagnosis for this admission?: Yes (6) Hyperkalemia Is this a current diagnosis for this admission?: Yes (7) Hyponatremia Is this a current diagnosis for this admission?: Yes (8) Coronary artery disease Qualifiers: Coronary Disease-Associated Artery/Lesion type: [place] artery [place] vs. transplanted heart: [place] heart Associated angina: without angina Qualified Code(s): I25.10 - Atherosclerotic heart disease of [place] coronary artery without angina pectoris Is this a current diagnosis for this admission?: Yes (9) Anemia Qualifiers: Anemia type: unspecified type Qualified Code(s): D64.9 - Anemia, unspecified Is this a current diagnosis for this admission?: Yes (10) Hypothyroid Qualifiers: Hypothyroidism type: unspecified Qualified Code(s): E03.9 - Hypothyroidism, unspecified Is this a current diagnosis for this admission?: Yes (11) Prostate cancer Is this a current diagnosis for this admission?: Yes (12) Systolic CHF, chronic Is this a current diagnosis for this admission?: Yes (13) COPD (chronic obstructive pulmonary disease) Qualifiers: COPD type: unspecified COPD Qualified Code(s): J44.9 - Chronic obstructive pulmonary disease, unspecified Is this a current diagnosis for this admission?: Yes - Time Time Spent with patient: 25-34 minutes - Plan Summary Plan Summary: We will continue current current management and supportive care. Prognosis is very poor. Family who is power of implementation analyst arrived today and likely make subsequent decisions from there. Patient getting marked thrombocytopenia. We will monitor. This probably related to antibiotics. Patient is a DO NOT RESUSCITATE. We will discuss comfort measures when family arrives.
[2016-11-30] MEDS: DOCUSATE SODIUM 100 MG CAPSULE PO SCH (09:53)
[2016-11-30] MEDS: LEVOTHYROXINE SODIUM 0.1 MG TABLET PO SCH (09:53)
[2016-11-30] MEDS: NYSTATIN 500000 UNIT/5 ML UDCUP PO SCH ×4 (09:54→21:24)
[2016-11-30] MEDS: MORPHINE SULFATE 10 MG/ML INJ IV PRN ×3 (11:18→21:31)
[2016-11-30] MEDS ORDERED: MORPHINE SULFATE 10 MG/ML INJ IV ONE (15:00)
[2016-11-30] MEDS ORDERED: LORAZEPAM 0.5 MG TABLET PEG PRN (23:28)
[2016-12-01] MEDS: PIPERACILLIN SODIUM/TAZOBACTAM 2.25 GM in NORMAL SALINE 50 ML IV SCH (01:35)
[2016-12-01] MEDS: MORPHINE SULFATE 10 MG/ML INJ IV PRN (01:35)
[2016-12-01 02:03] VITALS: BP 117/69
--- NOTE | 2016-12-01 10:29 | Progress Note ---
Provider Note Provider Note: 11/30/2016, 10:40 PM: Per patient's intensive care unit nurse, family members present at bedside and wish to proceed with comfort care designation. Evita, patient's ICU nurse is present. 2 sons are present, including Hugo, the surrogate health care decision maker. Patient's is . Stepdaughter/daughter (??) also present, along with a rn transition. Patient is quite frail and somnolent. When patient is asked how he is doing, or if he is having any pain, he only makes a barely audible unintelligible whisper. Certainly no condition to make any type of educated decision/ determination concerning his health status. Sons and Stepdaughter/daughter (??) state they have considered comfort care status for some time now and wish to proceed with same. Discussed in layperson' s terms. This will mean no further blood draws or x-rays. IV fluid only in terms of maintenance fluid. Should IV come out, will not be reinserted. No monitor. With no monitor, will discontinue both vasopressors. All present understand patient may very shortly thereafter as a result. Medications for comfort only. All present are quite comfortable with above plans, which once again, were discussed in layperson's terms.
[2016-12-01 13:16] LABS: PATH REVIEW PATHOLOGIST REVIEWED
--- NOTE | 2016-12-08 07:31 | Death Summary ---
Summary Date : 12/01/16 Time of :: 03:07 Autopsy: No Resuscitation Status: Comfort Measures Only - Final Diagnosis (1) Septic shock Is this a current diagnosis for this admission?: Yes (2) RLL pneumonia Is this a current diagnosis for this admission?: Yes (3) UTI (urinary tract infection) Is this a current diagnosis for this admission?: Yes (4) Acute renal failure superimposed on stage 3 chronic kidney disease Is this a current diagnosis for this admission?: Yes (5) Elevated LFTs Is this a current diagnosis for this admission?: Yes (6) Hyperkalemia Is this a current diagnosis for this admission?: Yes (7) Hyponatremia Is this a current diagnosis for this admission?: Yes (8) Coronary artery disease Is this a current diagnosis for this admission?: Yes (9) Anemia Is this a current diagnosis for this admission?: Yes (10) Hypothyroid Is this a current diagnosis for this admission?: Yes (11) Prostate cancer Is this a current diagnosis for this admission?: Yes (12) Systolic CHF, chronic Is this a current diagnosis for this admission?: Yes (13) COPD (chronic obstructive pulmonary disease) Is this a current diagnosis for this admission?: Yes Hospital Course:: The patient was admitted to the intensive care unit. Patient was hypotensive and was placed on vasopressors. He was found to have pneumonia, urinary tract infection, and sepsis. Urine culture growing Klebsiella. Broad-spectrum antibiotics were given. Patient was resuscitated with fluid but started to develop third space loss with edema and some effusion, causing shortness of breath. Intravenous fluid was therefore decreased, intravenous Lasix was given. Patient required to vasopressors to maintain blood pressure. In terms of his feeding tube, this was placed by Dr. Lucero and eventually was used for feeding and hydration. Patient showed no significant improvement despite measures. Family made him DO NOT RESUSCITATE, and eventually placed on comfort measures after discussion with them regarding prognosis and overall condition. Vasopressors were discontinued, eventually the patient developed hypotension with eventual bradycardia and asystole. Patient , family at bedside. Cause of that: Septic shock, secondary to pneumonia Comorbid conditions: Chronic systolic congestive heart failure.
== END 2016-12-01 03:07 | DRG 871 ==
LOC: ER 18:08 → UNDOADMIN 23:51 → EH 23:51 → ICU 11-26 05:59
PROVIDERS: ADMIT Family Medicine; ATTEND Family Medicine
PROC: 3E0F73Z Introduction of Anti-inflammatory into Respiratory Tract, Via Natural or Artificial Opening (ICD-10-PCS; 2016-11-26)
PROC: 0DH68UZ Insertion of Feeding Device into Stomach, Via Natural or Artificial Opening Endoscopic (ICD-10-PCS; principal; 2016-11-26 18:00)
DX: A41.9 Sepsis, unspecified organism (principal); R65.21 Severe sepsis with septic shock; J18.1 Lobar pneumonia, unspecified organism; N17.9 Acute kidney failure, unspecified; E44.1 Mild protein-calorie malnutrition; Z68.1 Body mass index [BMI] 19.9 or less, adult; I13.0 Hypertensive heart and chronic kidney disease with heart failure and stage 1 through stage 4 chronic kidney disease, or unspecified chronic kidney disease; I50.22 Chronic systolic (congestive) heart failure; C79.51 Secondary malignant neoplasm of bone; N39.0 Urinary tract infection, site not specified; E87.1 Hypo-osmolality and hyponatremia; E87.5 Hyperkalemia; E86.0 Dehydration; E03.9 Hypothyroidism, unspecified; D63.1 Anemia in chronic kidney disease; M40.209 Unspecified kyphosis, site unspecified; I95.9 Hypotension, unspecified; D69.6 Thrombocytopenia, unspecified; K29.70 Gastritis, unspecified, without bleeding; J44.9 Chronic obstructive pulmonary disease, unspecified; F03.90 Unspecified dementia, unspecified severity, without behavioral disturbance, psychotic disturbance, mood disturbance, and anxiety; N18.3 Chronic kidney disease, stage 3 (moderate); I25.10 Atherosclerotic heart disease of native coronary artery without angina pectoris; B96.1 Klebsiella pneumoniae [K. pneumoniae] as the cause of diseases classified elsewhere; I25.2 Old myocardial infarction; Z93.1 Gastrostomy status; Z79.899 Other long term (current) drug therapy; Z88.7 Allergy status to serum and vaccine; Z85.46 Personal history of malignant neoplasm of prostate; Z87.891 Personal history of nicotine dependence; Z66 Do not resuscitate
CPT/HCPCS: 36415; 43246; 71010; 76705; 76775; 80048; 80053; 80076; 81001; 82040; 83735; 84100; 84439; 84443; 84484; 85025; 85027; 85610; 87040; 87086; 87088; 87186; 93005; 93010; 94640; 96374; 96375; 99291; J0171; J0456; J0610; J0696; J1610; J1720; J1815; J1940; J2250; J2270; J2310; J2370; J2543; J3010; J3490; J7030; J7060; J7512; J7620